=== PATIENT | female | born 1965 | race Caucasian/White ===

== ENCOUNTER 2016-11-12 15:57 | Emergency (ER) | payer OTHER ==
[~2016-11-12] VITALS: Ht 160 cm; Wt 84.0 kg
[~2016-11-12 15:57] MED LIST: ALPR0.254 PO; AMLO5TAB4 PO; ASPI-664 PO; CLOP75TA27 PO; EMPA10TA PO; METO50TA16 PO; SERT50TA6 PO; SITA1TAB5 PO; TOPI-25 PO
[2016-11-12 16:01] VITALS: Ht 160 cm; Wt 84.0 kg
[2016-11-12] MEDS ORDERED: KETOROLAC 15 MG INJ IV STA (16:24)
[2016-11-12] MEDS ORDERED: SOD CHLORIDE 0.9% 1,000 ML IV STA (16:24)
[2016-11-12] MEDS ORDERED: ONDANSETRON 4 MG INJ IV STA (16:24)
[2016-11-12] MEDS ORDERED: DICYCLOMINE 20 MG INJ IM ONE (16:30)
--- NOTE | 2016-11-12 16:51 | ERA ---
ER Documentation Chief Complaint Date/Time DATE: 11/12/16 TIME: 16:49 Chief Complaint epigastric/ap with diarrhea x 3 days; HPI 51-year-old female history of prior stroke with occasional residual dysarthria who presents emergency room with abdominal pain. History provided by daughter. The patient describes approximately 3 days of symptoms that include nausea, nonbloody nonbilious emesis, loose watery stools and epigastric abdominal discomfort that is cramping and moderate. No fevers or chills, the patient generally has some slurred speech when in stressful situations secondary to baseline stroke which is occurring again. No facial droop, no motor weakness, no ataxia. ROS All systems reviewed and are negative except as per history of present illness. Medications Home Meds Active Scripts Ondansetron (Ondansetron Odt) 4 Mg Tab.rapdis, 4 MG PO Q6H Y for NAUSEA AND/OR VOMITING, #30 TAB Prov:DEEPAK JACOME MD 11/12/16 Ibuprofen* (Motrin*) 800 Mg Tab, 800 MG PO Q6H Y for PAIN AND OR ELEVATED TEMP, #30 TAB Prov:DEEPAK JACOME MD 11/12/16 Dicyclomine Hcl* (Bentyl*) 10 Mg Capsule, 10 MG PO QID Y for abdominal cramping , #30 CAP Prov:DEEPAK JACOME MD 11/12/16 Reported Medications Sertraline Hcl* (Sertraline Hcl*) 50 Mg Tablet, 50 MG PO DAILY, #30 TAB 06/06/16 Sitagliptin Phos/Metformin HCl (Janumet 50-1,000 mg Tablet) 1 Each Tablet, 1 EACH PO BID, TAB 06/06/16 Aspirin* (Aspirin* EC) 81 Mg Tablet.dr, 81 MG PO DAILY, TAB 06/06/16 Clopidogrel Bisulfate (Clopidogrel) 75 Mg Tablet, 75 MG PO DAILY, #30 TAB 06/06/16 Alprazolam* (Alprazolam*) 0.25 Mg Tablet, 0.25 MG PO BID Y for ANXIETY, TAB 06/06/16 Metoprolol Succinate* (Toprol XL*) 50 Mg Tab.er.24h, 50 MG PO DAILY, #30 TAB 06/06/16 Amlodipine Besylate* (Norvasc*) 5 Mg Tablet, 5 MG PO DAILY, TAB 12/10/16 Empagliflozin (Jardiance) 10 Mg Tablet, 10 MG PO DAILY, TAB 06/06/16 Topiramate* (Topiramate*) 100 Mg Tablet, 100 MG PO BID, TAB 06/06/16 Allergies Allergies: Coded Allergies: No Known Allergy (Unverified , 06/06/16) PMhx/Soc History of Surgery: No Anesthesia Reaction: No Hx Neurological Disorder: Yes Hx Respiratory Disorders: No Hx Cardiac Disorders: No Hx Psychiatric Problems: No Hx Miscellaneous Medical Probl: Yes (HTN) Hx Alcohol Use: No Hx Substance Use: No Hx Tobacco Use: No Physical Exam Vitals Vital Signs Date Time Temp Pulse Resp B/P Pulse Ox O2 Delivery O2 Flow Rate FiO2 11/12/16 16:15 96 16 147/94 98 Room Air 11/12/16 16:01 99.6 104 20 154/85 99 Physical Exam General: Well developed, well nourished, no acute distress, slightly slurred speech that is intermediate and inconsistent though consistent with her baseline Head: Normocephalic, atraumatic. Eyes: Pupils equally reactive, EOM intact ENT: Dry mucous membranes Neck: Supple, no lymphadenopathy Respiratory: Lungs clear bilaterally, no distress Cardiovascular: RRR, no murmurs, rubs, or gallops Abdominal: Soft, non-tender, non-distended, no peritoneal signs, negative James sign, no tenderness to McBurney's point : Deferred MSK: No edema, no unilateral swelling, 5/5 strength Neurologic: Alert and oriented, moving all extremities, occasional slurred speech, no focal weakness, no cerebellar signs Skin: No rash Psych: Normal mood Result Diagram: 11/12/16 1640 11/12/16 1640 Results 24 hrs Laboratory Tests Test 11/12/16 16:40 11/12/16 16:45 White Blood Count 11.010^3/ul Red Blood Count 4.3110^6/ul Hemoglobin 11.0g/dl Hematocrit 35.1% Mean Corpuscular Volume 81.4fl Mean Corpuscular Hemoglobin 25.5pg Mean Corpuscular Hemoglobin Concent 31.3g/dl Red Cell Distribution Width 14.6% Platelet Count 31877^3/UL Mean Platelet Volume 9.7fl Neutrophils % 83.7% Lymphocytes % 10.2% Monocytes % 4.9% Eosinophils % 0.8% Basophils % 0.1% Nucleated Red Blood Cells % 0.0/100WBC Neutrophils # 9.210^3/ul Lymphocytes # 1.110^3/ul Monocytes # 0.510^3/ul Eosinophils # 0.110^3/ul Basophils # 0.010^3/ul Nucleated Red Blood Cells # 0.010^3/ul Sodium Level 136mmol/L Potassium Level 4.0mmol/L Chloride Level 106mmol/L Carbon Dioxide Level 22mmol/L Anion Gap 12 Blood Urea Nitrogen 11mg/dl Creatinine 0.54mg/dl Glucose Level 155mg/dl Calcium Level 8.5mg/dl Total Bilirubin 0.1mg/dl Direct Bilirubin 0.00mg/dl Indirect Bilirubin 0.1mg/dl Aspartate Amino Transf (AST/SGOT) 22IU/L Alanine Aminotransferase (ALT/SGPT) 33IU/L Alkaline Phosphatase 68IU/L Total Protein 7.2g/dl Albumin 3.9g/dl Globulin 3.30g/dl Albumin/Globulin Ratio 1.18 Lipase 42U/L Urine Color LT. YELLOW Urine Clarity SLIGHTLY CLOUDY Urine pH 6.0 Urine Specific [place] <=1.005 Urine Ketones NEGATIVE Urine Nitrite NEGATIVE Urine Bilirubin NEGATIVE Urine Urobilinogen 0.2 E.U./dL Urine Leukocyte Esterase NEGATIVE Urine Microscopic RBC 0-2/HPF Urine Microscopic WBC 0-2/HPF Urine Squamous Epithelial Cells RARE Urine Hemoglobin TRACE Urine Glucose NEGATIVE% Urine Total Protein NEGATIVE Current Medications Medications (Trade) Dose Ordered Sig/Kristan Route PRN Reason Start Time Stop Time Status Last Admin Dose Admin Sodium Chloride (NS) 1,000 ml @ 1,000 mls/hr Q1H STAT IV 11/12/16 16:24 11/12/16 17:23 DC 11/12/16 17:04 Ondansetron HCl (Zofran Inj) 4 mg ONCE STAT IV 11/12/16 16:24 11/12/16 16:26 DC 11/12/16 17:02 Ketorolac Tromethamine (Toradol) 15 mg ONCE STAT IV 11/12/16 16:24 11/12/16 16:26 DC 11/12/16 17:02 Dicyclomine HCl (Bentyl) 10 mg ONCE ONCE IM 11/12/16 16:30 11/12/16 16:31 DC 11/12/16 17:24 Procedures/MDM LAB INTERPRETATION: White blood cell count of 11 with slight shift but normal electrolytes, normal urinalysis MEDICAL DECISION MAKING: The patient presents with 3 days of symptoms that include nausea vomiting diarrhea and epigastric abdominal discomfort. She has a benign abdominal examination. I believe her symptoms are likely secondary to viral process. The patient has a benign abdominal exam without signs of acute intra-abdominal process. The patient does have slurred speech secondary to stress response this is consistent with her baseline and not consistent with a new or acute stroke. The daughter and patient reiterated that this is a normal process for her. I would like to avoid unnecessary CT imaging therefore laboratory testing and fluid resuscitation with serial abdominal exams will be initiated. ER COURSE: On reevaluation the patient still has mild epigastric abdominal pain but states that she subjectively feels better. I believe this is most consistent with viral process. I discussed outpatient symptom control, probiotics. I discussed return precautions for any worsening abdominal pain or worsening symptoms and the patient verbalizes understanding. Her slurred speech issues are improving as the patient has subjective improvement. I kept the patient and/or family informed of laboratory and diagnostic imaging results throughout the emergency room course. DISPOSITION PLAN: We discussed follow up with the patient's primary care doctor within 24 to 48 hours as needed. We also discussed return to the emergency room for worsening symptoms or worsening condition. Outpatient referral: [None required] Discharge Medications: Zofran, Bentyl, Motrin Departure Diagnosis: Primary Impression: Nausea vomiting and diarrhea Condition: Stable DEEPAK JACOME MD November 12, 2016 16:51
[2016-11-12 17:00] LABS: ADD SCAN DIFF NO
[2016-11-12 17:01] LABS: BASOPHILS % 0.1 % (0.0-2.0); EOSINOPHILS # 0.1 10^3/ul (0.0-0.5); EOSINOPHILS % 0.8 % (0.0-7.0); HEMATOCRIT 35.1 % (37.0-47.0); LYMPHOCYTES # 1.1 10^3/ul (0.8-2.9); LYMPHOCYTES % 10.2 % (15.0-51.0); MEAN CORPUSCULAR HEMOGLOBIN 25.5 pg (29.0-33.0); MEAN CORPUSCULAR HGB CONC 31.3 g/dl (32.0-37.0); MEAN CORPUSCULAR VOLUME 81.4 fl (82.0-101.0); MEAN PLATELET VOLUME 9.7 fl (7.4-10.4); MONOCYTE # 0.5 10^3/ul (0.3-0.9); MONOCYTES % 4.9 % (0.0-11.0); NEUTROPHIL # 9.2 10^3/ul (1.6-7.5); NEUTROPHILS % 83.7 % (39.0-77.0); PLATELET COUNT 377 10^3/UL (140-415); RED BLOOD COUNT 4.31 10^6/ul (4.20-5.40); RED CELL DISTRIBUTION WIDTH 14.6 % (11.5-14.5)
[2016-11-12 17:21] LABS: ALBUMIN 3.9 g/dl (3.3-4.9); ALBUMIN/GLOBULIN RATIO 1.18; BILIRUBIN,INDIRECT 0.1 mg/dl (0-1.1); BILIRUBIN,TOTAL 0.1 mg/dl (0.2-1.3); CALCIUM 8.5 mg/dl (8.4-10.2); CREATININE 0.54 mg/dl (0.44-1.00); TOTAL PROTEIN 7.2 g/dl (6.1-8.1)
[2016-11-12 17:29] LABS: ADD UMIC YES; URINE BILIRUBIN (Dip) NEGATIVE (NEGATIVE); URINE BLOOD (Dip) TRACE (NEGATIVE); URINE COLOR LT. YELLOW (YELLOW); URINE GLUCOSE (Dip) NEGATIVE (NEGATIVE); URINE KETONES (Dip) NEGATIVE (NEGATIVE); URINE LEUKOCYTE ESTERASE (Dip) NEGATIVE (NEGATIVE); URINE NITRITE (Dip) NEGATIVE (NEGATIVE); URINE TOTAL PROTEIN (Dip) NEGATIVE (NEGATIVE); URINE UROBILINOGEN (Dip) 0.2 E.U./dL (0.1-1.0)
[2016-11-12 17:37] LABS: SQUAMOUS EPITHELIAL CELL,UR RARE; URINE RBCS 0-2 /HPF (0)
[2016-11-12] MEDS ORDERED: ONDA4TAB14 PO (17:45)
[2016-11-12] MEDS ORDERED: DICY10CA60 PO (17:45)
[2016-11-12] MEDS ORDERED: IBUP800T25 PO (17:45)
[2016-11-12 18:11] VITALS: BP 142/88; PULSE 90; RESP 16
== END 2016-11-12 18:29 | disposition home or self-care (01) ==
LOC: E/R 15:57
DX: R11.2 Nausea with vomiting, unspecified (principal); R40.2252 Coma scale, best verbal response, oriented, at arrival to emergency department; R19.7 Diarrhea, unspecified; I10 Essential (primary) hypertension; R40.2142 Coma scale, eyes open, spontaneous, at arrival to emergency department; R40.2362 Coma scale, best motor response, obeys commands, at arrival to emergency department; Z79.82 Long term (current) use of aspirin
CPT/HCPCS: 80053; 81001; 83690; 85025; 96372; 96374; 96375; J0500; J1885; J2405; J7030; Z7502; Z7610; 81003

== ENCOUNTER 2017-04-08 14:14 | Inpatient (IN) | payer OTHER ==
[~2017-04-08] VITALS: Ht 160 cm; Wt 85.0 kg
[~2017-04-08 14:14] MED LIST changes: +DICY10CA60 PO; +IBUP800T25 PO; +METO-319 PO; -METO50TA16 PO; +ONDA4TAB14 PO
[2017-04-08] MEDS ORDERED: SOD CHLORIDE 0.9% 500 ML IV STA (14:33)
--- NOTE | 2017-04-08 14:50 | RADRPT ---
PROCEDURE: XR Chest. CLINICAL INDICATION: Possible stroke TECHNIQUE: Single frontal view of the chest was obtained COMPARISON: 06/08/2016 FINDINGS: No pleural effusion or pneumothorax. No consolidation. Stable cardiomediastinal silhouette. No acute osseous abnormality. IMPRESSION: No acute cardiopulmonary disease. RPTAT: EE Newton Barahona Physician Date Time Electronically viewed and signed by Newton Barahona Physician on 04/08/2017 14:50 GC/
[2017-04-08 15:24] LABS: BASOPHILS % 0.4 % (0.0-2.0); EOSINOPHILS # 0.1 10^3/ul (0.0-0.5); HEMATOCRIT 36.5 % (37.0-47.0); HEMOGLOBIN 11.1 g/dl (12.0-16.0); LYMPHOCYTES # 2.4 10^3/ul (0.8-2.9); LYMPHOCYTES % 28.5 % (15.0-51.0); MEAN CORPUSCULAR HEMOGLOBIN 23.9 pg (29.0-33.0); MEAN CORPUSCULAR HGB CONC 30.4 g/dl (32.0-37.0); MEAN CORPUSCULAR VOLUME 78.7 fl (82.0-101.0); MEAN PLATELET VOLUME 10.2 fl (7.4-10.4); MONOCYTE # 0.6 10^3/ul (0.3-0.9); MONOCYTES % 6.8 % (0.0-11.0); NEUTROPHIL # 5.2 10^3/ul (1.6-7.5); NEUTROPHILS % 62.9 % (39.0-77.0); PLATELET COUNT 400 10^3/UL (140-415); RED BLOOD COUNT 4.64 10^6/ul (4.20-5.40); RED CELL DISTRIBUTION WIDTH 15.5 % (11.5-14.5); WHITE BLOOD COUNT 8.3 10^3/ul (4.8-10.8)
[2017-04-08 15:36] LABS: ADD UMIC YES; UR ASCORBIC ACID NEGATIVE (NEGATIVE); UR BILIRUBIN (Dip) NEGATIVE (NEGATIVE); UR BLOOD (Dip) 2+ mg/dL (NEGATIVE); UR CLARITY SLIGHTLY CLOUDY (CLEAR); UR COLOR YELLOW (YELLOW); UR GLUCOSE (Dip) 3+ mg/dL (NEGATIVE); UR KETONES (Dip) NEGATIVE (NEGATIVE); UR LEUKOCYTE ESTERASE (Dip) 1+ Leu/ul (NEGATIVE); UR NITRITE (Dip) NEGATIVE (NEGATIVE); UR RBC 4 /HPF (0-5); UR SPECIFIC GRAVITY (Dip) 1.031 (1.003-1.030); UR SQUAMOUS EPITHELIAL CELL FEW /HPF (FEW); UR TOTAL PROTEIN (Dip) NEGATIVE (NEGATIVE); UR UROBILINOGEN (Dip) NEGATIVE (NEGATIVE)
--- NOTE | 2017-04-08 15:37 | RADRPT ---
PROCEDURE: Noncontrast CT Head. CLINICAL INDICATION: Stroke. TECHNIQUE: Noncontrast CT of the head was obtained. The administered radiation dose was CTDI vol = 43.27 mGy, DLP = 720.23 the mGy-cm. One or more of the following dose reduction techniques were used : Automated exposure control, Adjustment of the mA and/or kV according to patient size, or Use of it erative reconstruction technique. COMPARISON: Noncontrast CT of the head from June 06, 2016. FINDINGS: The ventricles and sulci are within normal limits. There is stable small left frontal opercular small chronic infarction. There is stable adjacent osse ous scalloping. There is a partially empty sella turcica. There is subtle loss of velasquez-white differentiation within the left lateral temporal lobe (image [id number] s eries [phone]) suspicious for acute / recent infarction. There is no acute intracranial hemorrhage. There is no mass effect. No midline shift is identified. The orbits are within normal limits. The paranasal sinuses are well aerated. No destructive osseous lesion is identified. IMPRESSION: No significant change. 1. Subtle loss of velasquez-white differentiation within the left lateral temporal lobe suspicious for ac rafael / recent infarction. Noncontrast MRI of the brain may be performed as clinically warranted. 2. No acute intracranial hemorrhage. 3. Stable small chronic left frontal opercular infarction. 4. Partially empty sella turcica. Further findings as detailed above. These findings were discussed with Berlin Littlejohn on 04/08/2017 at 3:35 PM. RPTAT: PP .Manoj Moreira MD, MD Date Time Electronically viewed and signed by .Manoj Moreira MD, MD on 04/08/2017 15:37 .F/
[2017-04-08 15:39] LABS: INR 1.02; PROTIME 13.4 Sec (12.2-14.2)
[2017-04-08 15:40] LABS: PARTIAL THROMBOPLASTIN TIME 33.5 Sec (25.0-35.0)
[2017-04-08 15:42] LABS: ANION GAP 13 (8-16); BLOOD UREA NITROGEN 17 mg/dl (7-20); CARBON DIOXIDE 21 mmol/L (21-31); CHLORIDE 111 mmol/L (97-110); CREATININE 0.83 mg/dl (0.44-1.00); GLUCOSE 143 mg/dl (70-220); POTASSIUM 3.9 mmol/L (3.5-5.1); SODIUM 141 mmol/L (135-144)
[2017-04-08 15:59] LABS: TROPONIN-I < 0.012 ng/ml (0.00-0.12)
[2017-04-08] MEDS ORDERED: ASPIRIN 81 MG TAB PO ONE (16:00)
[2017-04-08 16:10] LABS: BARBITURATES Negative (NEGATIVE); BENZODIAZEPINES Negative (NEGATIVE); CANNABINOIDS Negative (NEGATIVE); COCAINE Negative (NEGATIVE); OPIATES Negative (NEGATIVE)
[2017-04-08] MEDS ORDERED: ONDANSETRON 4 MG INJ IV PRN (16:30)
[2017-04-08] MEDS ORDERED: ACETAMINOPHEN 325 MG TAB PO PRN (16:30)
--- NOTE | 2017-04-08 18:27 | ERA ---
ER Documentation Chief Complaint Date/Time DATE: 04/08/17 TIME: 18:18 Chief Complaint dizziness , slurring of speech, headache - hx of stroke HPI This 51-year-old female presents for approximately 16 hours of slurred speech, generalized weakness, headache and confusion. She has a history of 2 previous strokes. She has residual weakness on her left side but states that her left arm and leg have also been weaker than usual since last night. Denies any nausea or vomiting. Denies head injury. ROS All systems reviewed and are negative except as per history of present illness. Medications Home Meds Active Scripts Ondansetron (Ondansetron Odt) 4 Mg Tab.rapdis, 4 MG PO Q6H Y for NAUSEA AND/OR VOMITING, #30 TAB Prov:DEEPAK JACOME MD 11/12/16 Ibuprofen* (Motrin*) 800 Mg Tab, 800 MG PO Q6H Y for PAIN AND OR ELEVATED TEMP, #30 TAB Prov:DEEPAK JACOME MD 11/12/16 Dicyclomine Hcl* (Bentyl*) 10 Mg Capsule, 10 MG PO QID Y for abdominal cramping , #30 CAP Prov:DEEPAK JACOME MD 11/12/16 Reported Medications Sertraline Hcl* (Sertraline Hcl*) 50 Mg Tablet, 50 MG PO DAILY, #30 TAB 06/06/16 Sitagliptin Phos/Metformin HCl (Janumet 50-1,000 mg Tablet) 1 Each Tablet, 1 EACH PO BID, TAB 06/06/16 Aspirin* (Aspirin* EC) 81 Mg Tablet.dr, 81 MG PO DAILY, TAB 06/06/16 Clopidogrel Bisulfate (Clopidogrel) 75 Mg Tablet, 75 MG PO DAILY, #30 TAB 06/06/16 Alprazolam* (Alprazolam*) 0.25 Mg Tablet, 0.25 MG PO BID Y for ANXIETY, TAB 06/06/16 Metoprolol Succinate* (Toprol XL*) 50 Mg Tab.er.24h, 50 MG PO DAILY, #30 TAB 06/06/16 Amlodipine Besylate* (Norvasc*) 5 Mg Tablet, 5 MG PO DAILY, TAB 06/06/16 Empagliflozin (Jardiance) 10 Mg Tablet, 10 MG PO DAILY, TAB 06/06/16 Topiramate* (Topiramate*) 100 Mg Tablet, 100 MG PO BID, TAB 06/06/16 Allergies Allergies: Coded Allergies: No Known Allergy (Unverified , 04/08/17) PMhx/Soc History of Surgery: No Anesthesia Reaction: No Hx Neurological Disorder: Yes (stroke) Hx Respiratory Disorders: No Hx Cardiac Disorders: Yes (HTN, high cholesterol. ) Hx Psychiatric Problems: No Hx Miscellaneous Medical Probl: Yes (dm2, anemia) Hx Alcohol Use: No Hx Substance Use: No Hx Tobacco Use: No Smoking Status: Never smoker Physical Exam Vitals Vital Signs Date Time Temp Pulse Resp B/P Pulse Ox O2 Delivery O2 Flow Rate FiO2 04/08/17 15:51 84 18 153/82 99 Room Air 04/08/17 14:16 98.5 90 18 151/84 99 Physical Exam Const: [] Mild distress Head: Atraumatic Eyes: Normal Conjunctiva, EOMI, PERRL ENT: Normal External Ears, Nose and Mouth. Neck: Full range of motion..~ No meningismus. Resp: Clear to auscultation bilaterally Cardio: Regular rate and rhythm, no murmurs Abd: Soft, non tender, non distended. Normal bowel sounds Skin: No petechiae or rashes Back: No midline or flank tenderness Ext: No cyanosis, or edema Neur: Awake and alert and oriented 3, slurred speech and slow to form sentences, patient does have 4 out of 5 strength in left battery charger conveyor line and left leg, however since she stated that she had weakness in his leg discounting them from the NIH stroke scale she has an AHI of 3 for the slurred speech and confusion. She is able to remember 3 objects Psych: Normal Mood and Affect Result Diagram: 04/08/17 1505 04/08/17 1505 Results 24 hrs Laboratory Tests Test 04/08/17 14:28 04/08/17 15:05 04/08/17 15:15 Bedside Glucose 135mg/dL White Blood Count 8.310^3/ul Red Blood Count 4.6410^6/ul Hemoglobin 11.1g/dl Hematocrit 36.5% Mean Corpuscular Volume 78.7fl Mean Corpuscular Hemoglobin 23.9pg Mean Corpuscular Hemoglobin Concent 30.4g/dl Red Cell Distribution Width 15.5% Platelet Count 76952^3/UL Mean Platelet Volume 10.2fl Neutrophils % 62.9% Lymphocytes % 28.5% Monocytes % 6.8% Eosinophils % 1.0% Basophils % 0.4% Nucleated Red Blood Cells % 0.0/100WBC Neutrophils # 5.210^3/ul Lymphocytes # 2.410^3/ul Monocytes # 0.610^3/ul Eosinophils # 0.110^3/ul Basophils # 0.010^3/ul Nucleated Red Blood Cells # 0.010^3/ul Prothrombin Time 13.4Sec Prothrombin Time Ratio 1.0 INR International Normalized Ratio 1.02 Activated Partial Thromboplast Time 33.5Sec Sodium Level 141mmol/L Potassium Level 3.9mmol/L Chloride Level 111mmol/L Carbon Dioxide Level 21mmol/L Anion Gap 13 Blood Urea Nitrogen 17mg/dl Creatinine 0.83mg/dl Glucose Level 143mg/dl Hemoglobin A1c 7.0% Calcium Level 9.0mg/dl Troponin I < 0.012ng/ml Urine Color YELLOW Urine Clarity SLIGHTLY CLOUDY Urine pH 5.0 Urine Specific [place] 1.031 Urine Ketones NEGATIVEmg/dL Urine Nitrite NEGATIVEmg/dL Urine Bilirubin NEGATIVEmg/dL Urine Urobilinogen NEGATIVEmg/dL Urine Leukocyte Esterase 1+Mani/ul Urine Microscopic RBC 4/HPF Urine Microscopic WBC 18/HPF Urine Squamous Epithelial Cells FEW/HPF Urine Hemoglobin 2+mg/dL Urine Glucose 3+mg/dL Urine Total Protein NEGATIVEmg/dl Urine Opiates Screen Negative Urine Barbiturates Negative Urine Amphetamines Screen Negative Urine Benzodiazepines Screen Negative Urine Cocaine Screen Negative Urine Cannabinoids Negative Current Medications Medications (Trade) Dose Ordered Sig/Kristan Route PRN Reason Start Time Stop Time Status Last Admin Dose Admin Sodium Chloride (NS) 500 ml @ 500 mls/hr Q1H STAT IV 04/08/17 14:33 04/08/17 15:32 DC 04/08/17 14:54 Aspirin (Aspirin) 324 mg ONCE ONCE PO 04/08/17 16:00 04/08/17 16:01 DC 04/08/17 15:46 Ondansetron HCl (Zofran Inj) 4 mg ER BRIDGE PRN IV NAUSEA AND/OR VOMITING 04/08/17 16:30 04/09/17 16:29 Acetaminophen (Tylenol Tab) 650 mg ER BRIDGE PRN PO MILD PAIN/FEVER 04/08/17 16:30 04/09/17 16:29 Procedures/MDM Acute CVA and urinary tract infection. She was placed on a monitor and CT revealed possible temporal lobe stroke. MRI was ordered. Patient states that she will need anxiety medication prior to MRI as she is claustrophobic. Also has urinary tract infection without signs of sepsis. She was given aspirin is immediately after CAT scan did not reveal any ischemia. She is not a TPA candidate because symptoms were not present for almost a full day now. She currently admitted to telemetry for monitoring of her serious condition. Spoke with Dr. Smith will be admitting. EKG interpretation: Normal sinus rhythm rate of 80, normal axis, no ST or T- wave changes concerning for acute ischemia, normal intervals. Normal EKG Departure Diagnosis: Primary Impression: Acute CVA (cerebrovascular accident) Additional Impression: UTI (urinary tract infection) Condition: Serious FABIANCHELAMBER DO Apr 08, 2017 18:26
[2017-04-08] MEDS ORDERED: CEFTRIAXONE 1 GM/50 ML (PMX) 50 ML IVPB ONE (18:30)
[2017-04-08 20:00] VITALS: Ht 160 cm; Wt 85.0 kg
[2017-04-08 20:34] VITALS: PULSE 73
[2017-04-08 20:56] VITALS: BP 135/73; RESP 20
[2017-04-08] MEDS ORDERED: hydrALAzine 20 MG INJ IV PRN (21:30)
--- NOTE | 2017-04-08 22:13 | RADRPT ---
PROCEDURE: MRI Brain without contrast. CLINICAL INDICATION: Dizziness, altered mental status. TECHNIQUE: An MRI of the brain was performed utilizing the following sequences: Sagittal and axial T1 weighted, axial T2 weighted, axial diffusion weighted with ADC mapping, coronal GRE, and axial F LAIR. COMPARISON: Brain CT 04/08/2017. Brain MRI 06/07/2016. FINDINGS: No diffusion weighted abnormalities are seen to suggest the presence of acute ischemia or recent inf arct. No hypointense signal abnormalities are seen on the GRE images to suggest the presence of blo od degradation products. There is no evidence of intracranial hemorrhage, mass effect, or midline s hift. No extra-axial fluid collections are seen. The ventricles and sulci are minimally enlarged ind icative of volume loss. Partially empty and expanded sella is noted. There are mild to scattered foci of T2 FLAIR hyperintensity in the periventricular, deep, and subcor tical white matter, which are nonspecific in etiology but likely reflect chronic small vessel ischem ic changes. Focal old left parietal cortical infarct is noted. No abnormal intracranial vascular flow void is noted. The visualized paranasal sinuses demonstrate s mall probable mucous retention cysts in maxillary sinuses. IMPRESSION: 1. No acute intracranial hemorrhage, infarction or mass. 2. Mild chronic small vessel ischemic changes. 3. Focal old left parietal cortical infarct. 4. Partially empty and expanded sella. 5. Minimal generalized cerebral volume loss. RPTAT: HFN .Breezy Culver MD, MD Date Time Electronically viewed and signed by .Breezy Culver MD, MD on 04/08/2017 22:12 .N/
[2017-04-08] MEDS: ALPRAZOLAM 0.25 MG TAB PO PRN (22:36)
[2017-04-08] MEDS: ATORVASTATIN 40 MG TAB PO SCH (22:46)
[2017-04-08] MEDS ORDERED: GLUCOSE GEL 15 GRAM TUBE PO PRN ×2 (23:00)
[2017-04-08] MEDS ORDERED: GLUCAGON 1 MG INJ IM PRN (23:00)
[2017-04-08] MEDS ORDERED: GLUCOSE GEL 15 GRAM TUBE BUCCAL PRN (23:00)
[2017-04-08] MEDS ORDERED: DEXTROSE 50% 50 ML SYRINGE IV PRN ×2 (23:00)
[2017-04-08] MEDS ORDERED: ZOLPIDEM 5 MG TAB ONE (23:44)
[2017-04-09] VITALS (11 sets, daily range): BP systolic 122–137; BP diastolic 73–88; PULSE 68–77; RESP 17–19
[2017-04-09] MEDS: ZOLPIDEM 5 MG TAB PO PRN ×2 (00:03→21:29)
[2017-04-09] MEDS: ACCU-CHEK XX SCH (03:00)
--- NOTE | 2017-04-09 03:44 | HP ---
DATE OF ADMISSION: 04/08/2017 CHIEF COMPLAINT: Slurred speech and right-sided weakness. HISTORY OF PRESENT ILLNESS: The patient is an 51-year-old female well known to me from previous adm ission. The patient has a history of hypertension and CVA, which was diagnosed back in May. The patient had residual right-sided weakness and uses a cane for ambulation. The patient, yest erday, noted dizziness and slurred speech and also noted increasing weakness in the right side. The patient reported the symptoms started last night; however, they did not seek medical advice and, th erefore, came to the ER today. The patient did not have any headache or seizure. The patient did n ot have any chest congestion and was able to manage her oral secretions. The patient underwent CT o f the head, which revealed sudden loss of velasquez-white differentiation within the left parietotemporal lobe, suspicious for acute/recent infarction. MRI will be ordered for further evaluation. The pat ient denies any chest pain, abdominal pain. No reported leg edema. No reported resting leg pain. REVIEW OF SYSTEMS: Was rather limited because of slurred speech. The patient did not have any blee ding from any site. No recent fever or chills. As per the patient's daughter, no reported vomiting . The patient does have a history of diabetes for which she was on oral agents. The patient also h as a history of anxiety for which she takes Xanax on a p.r.n. basis. The patient was already on asp irin due to her previous stroke. PAST MEDICAL HISTORY: As stated above. In addition, the patient has a history of a suction dilatio n endometrial ablation for intractable menometrorrhagia by Dr. Virk. ALLERGIES: NONE. SOCIAL HISTORY: No smoking, no alcohol. FAMILY HISTORY: Positive for diabetes and hypertension. PHYSICAL EXAMINATION: GENERAL: The patient noted to be conscious, awake, alert, follows simple commands, does have slurre d speech. VITAL SIGNS: Temperature 98.1, pulse 74, respiratory rate 20, blood pressure 137/72, O2 saturation 98% on room air. HEENT: Conjunctivae and lids normal. Oropharynx clear. NECK: Supple. No carotid bruits. No JVD. CHEST: Fairly clear. CARDIOVASCULAR: S1, S2 normal. No murmur. Oropharynx grossly negative. ABDOMEN: Soft, nondistended, nontender. No palpable mass. EXTREMITIES: No leg edema. Pedal pulses palpable. SKIN: Without acute rash. NEUROLOGIC: The patient is awake, alert, follows simple commands, has slurred speech, as well as ri ght-sided weakness. LABS: WBC 8.3, hemoglobin 11.1, platelets 400. Sodium 141, potassium 3.9, BUN 17, creatinine 0.8, glucose 7. The patient's lipid panel back in 2016 revealed LDL of 32 and her hemoglobin A1c was 7 a s compared to 7.2 back in 2016. IMPRESSION: 1. Recurrent cerebrovascular accident. 2. Hypertension. 3. Diabetes mellitus. 4. Anxiety and possible depression. PLAN: The patient admitted on telemetry floor. Patient will be started on mechanical soft diet, wi ll be continued on Norvasc as at home. We will also add Plavix. Will hold off on aspirin. Will pu t her on sliding scale insulin and will use SCD for DVT prophylaxis. Will also add statins. Will o btain ST, PT, and OT as well, and also will obtain carotid Doppler and 2D echocardiogram and MRI of the brain. Further recommendation depends on hospital course. A neuro consult will also be obtaine d. The plan of care discussed with the patient's daughter. Dictated By: CHERRY CONLEY/VANDANA Conf#: [id number] DID#: [id number]
[2017-04-09] MEDS: INSULIN ASPART [NOVOLOG] 3 ML PEN SC SCH ×4 (08:00→21:00)
[2017-04-09] MEDS: CLOPIDOGREL 75 MG TAB PO SCH (08:19)
[2017-04-09] MEDS: AMLODIPINE 5 MG TAB PO SCH (08:19)
[2017-04-09 08:21] LABS: CHOL/HDL RATIO 2.7 RATIO
[2017-04-09] MEDS: ACETAMINOPHEN 325 MG TAB PO PRN ×2 (10:23→17:22)
--- NOTE | 2017-04-09 19:29 | PN ---
Date/Time of Note Date/Time of Note DATE: 04/09/17 TIME: 19:24 Assessment/Plan VTE Prophylaxis VTE Prophylaxis Intervention: SCD's Lines/Catheters IV [facility]ter Type [facility]from [facility] Saline Lock Assessment/Plan Chief Complaint/Hosp Course Patient is sitting in bed eating dinner, and denies any chest pain denies shortness of breath, patient has right upper and lower extremities weakness, continue physical Occupational Therapy. Problems: Assessment/Plan - Recurrent cerebrovascular accident. Continue Plavix. Dr. Enriquez is asked to see patient in neurology consultation. - Hypertension. - Diabetes mellitus. HglA1c 7.0 continue Lantus and NovoLog - Hyperlipidemia, continue Lipitor - Anxiety and possible depression. Further recommendations based on clinical course. Plan of care discussed with Dr. Smith Exam/Review of Systems Vital Signs Vitals Vital Signs Date Time Temp Pulse Resp B/P Pulse Ox O2 Delivery O2 Flow Rate FiO2 04/09/17 16:15 76 04/09/17 15:40 98.4 18 124/88 96 04/08/17 18:30 Room Air Intake and Output 04/08/17 04/08/17 04/09/17 15:00 23:00 07:00 Intake Total 200 ml Balance 200 ml Exam Constitutional: alert, oriented Head: normocephalic Neck: supple Respiratory: normal air movement Cardiovascular: nl pulses Gastrointestinal: non-tender, soft Musculoskeletal: nl extremities to inspection Neurological: nl mental status Skin: other (Right-sided weakness) Results Result Diagram: 04/08/17 1505 04/08/17 1505 Results 24 hrs Laboratory Tests Test 04/09/17 03:01 04/09/17 07:12 04/09/17 08:17 04/09/17 12:02 Bedside Glucose 188 128 154 Triglycerides Level 129 Cholesterol Level 122 LDL Cholesterol, Calculated 51 HDL Cholesterol 45 Cholesterol/HDL Ratio 2.7 Test 04/09/17 17:15 Bedside Glucose 203 Medications Medications Current Medications Alprazolam (Xanax) 0.25 mg BID PRN PO ANXIETY Last administered on 04/08/17 22:36; Admin Dose 0.25 MG; Start 04/08/17 at 21:00 Amlodipine Besylate (Norvasc) 5 mg DAILY PO Last administered on 04/09/17 08: 19; Admin Dose 5 MG; Start 04/09/17 at 09:00 Atorvastatin Calcium (Lipitor) 40 mg HS PO Last administered on 04/08/17 22: 46; Admin Dose 40 MG; Start 04/08/17 at 21:00 Clopidogrel Bisulfate (plaVIX) 75 mg DAILY PO Last administered on 04/09/17 08:19; Admin Dose 75 MG; Start 04/09/17 at 09:00 Acetaminophen (Tylenol Tab) 650 mg Q4H PRN PO PAIN AND OR ELEVATED TEMP Last administered on 04/09/17 17:22; Admin Dose 650 MG; Start 04/08/17 at 21:30 Hydralazine HCl (Apresoline) 10 mg Q4H PRN IV ELEVATED BLOOD PRESSURE; Start 04/08/17 at 21:30 Insulin Glargine (Lantus) 10 unit DAILY@20 SC ; Start 04/09/17 at 20:00 Diagnostic Test (Pha) (Accu-Chek) 1 ea 02 XX Last administered on 04/09/17 03 :00; Admin Dose 1 EA; Start 04/09/17 at 02:00 Miscellaneous Information 1 ea NOTE XX ; Start 04/08/17 at 23:00 Glucose (Glutose) 15 gm Q15M PRN PO DECREASED GLUCOSE; Start 04/08/17 at 23:00 Glucose (Glutose) 22.5 gm Q15M PRN PO DECREASED GLUCOSE; Start 04/08/17 at 23: 00 Dextrose (D50w Syringe) 25 ml Q15M PRN IV DECREASED GLUCOSE; Start 04/08/17 at 23:00 Dextrose (D50w Syringe) 50 ml Q15M PRN IV DECREASED GLUCOSE; Start 04/08/17 at 23:00 Glucagon (Glucagen) 1 mg Q15M PRN IM DECREASED GLUCOSE; Start 04/08/17 at 23: 00 Glucose (Glutose) 15 gm Q15M PRN BUCCAL DECREASED GLUCOSE; Start 04/08/17 at 23:00 Zolpidem Tartrate (Ambien) 5 mg HS PRN PO INSOMNIA Last administered on 00:03; Admin Dose 5 MG; Start 04/09/17 at 00:00 KAYLA JACKSON Apr 09, 2017 19:29
--- NOTE | 2017-04-09 20:53 | RADRPT ---
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 Physician: CHERRY KELLEY Quality: Good Procedures: Transthoracic echocardiogram with complete 2D, M-Mode, and doppler examination. Indications: History of Stroke. 2D/M Mode Doppler Measurement Value Normal Ranges Measurement Value Normal Ranges AoR Diam MM 3.3 cm CELSO Vmax 2.4 cm2 ACS MM 1.9 cm CELSO VTI 2.4 cm2 LA/Ao MM 1.0 AV Peak Duglas 1.2 m/sec LA Dimen MM 3.4 cm AV Peak PG 5.4 mmHg LVIDd 2D 4.5 3.5 - 5.6 cm LVOT Peak Duglas 1.0 m/sec LVIDs 2D 2.9 2.1 - 4.1 cm LVOT Peak PG 3.6 mmHg LVPWd 2D 1.0 0.6 - 1.1 cm MV E Peak Duglas 0.5 m/sec IVSd 2D 0.9 0.6 - 1.1 cm MV A Peak Duglas 0.7 m/sec EDV 2D 93.3 cm3 MV E/A 0.7 ESV 2D 25.6 cm3 MV Decel Time 285 msec EF 2D 64.0 50.0 - 65.0 % MV Decel Larue 2 LVOT Diam 1.9 cm MV E/A 0.7 Findings Left Ventricle: Normal left ventricular systolic function. Overall, normal left ventricular systolic function. Not all segments visualized. Normal left ventricular cavity size. Ejection fraction is visually estimated at 55 %. Right Ventricle: Normal right ventricular size. Left Atrium: The left atrium is normal in size. Right Atrium: The right atrium is normal in size. Mitral Valve: Normal appearance of the mitral valve. Trace mitral regurgitation. Aortic Valve: Normal appearance of the aortic valve. No significant aortic stenosis or insufficiency. Tricuspid Valve: Unable to obtain RVSP due to minimal presence of tricuspid regurgitation. Pulmonic Valve: Normal pulmonic valve appearance. Pericardium: Possible trivial pericardial effusion anteriorly. Aorta: Normal aortic root. IVC: The IVC is not well visualized. Conclusions 1.Normal left ventricular systolic function. Overall, normal left ventricular systolic function. Not all segments visualized. Normal left ventricular cavity size. Ejection fraction is visually estimated at 55 %. 2.Normal appearance of the mitral valve. Trace mitral regurgitation. 3.Unable to obtain RVSP due to minimal presence of tricuspid regurgitation. Electronically Signed By: Anant Hill 09-Apr-2017 20:52:07 -0700 Patient Name: MARIAJOSE STUART Study Date: 09-Apr-[id number]
[2017-04-09] MEDS: ATORVASTATIN 40 MG TAB PO SCH (21:28)
[2017-04-09] MEDS: INSULIN GLARGINE [LANtus] 3 ML PEN SC SCH (21:33)
[2017-04-09 22:49] LABS: ADD UMIC NO; UR ASCORBIC ACID NEGATIVE (NEGATIVE); UR BILIRUBIN (Dip) NEGATIVE (NEGATIVE); UR BLOOD (Dip) NEGATIVE (NEGATIVE); UR CLARITY CLEAR (CLEAR); UR COLOR YELLOW (YELLOW); UR GLUCOSE (Dip) 3+ mg/dL (NEGATIVE); UR KETONES (Dip) TRACE mg/dL (NEGATIVE); UR LEUKOCYTE ESTERASE (Dip) NEGATIVE Leu/ul (NEGATIVE); UR NITRITE (Dip) NEGATIVE (NEGATIVE); UR TOTAL PROTEIN (Dip) NEGATIVE (NEGATIVE); UR UROBILINOGEN (Dip) NEGATIVE (NEGATIVE)
[2017-04-10] VITALS (11 sets, daily range): BP systolic 114–132; BP diastolic 70–89; PULSE 64–93; RESP 17–20
[2017-04-10] MEDS: ACCU-CHEK XX SCH (02:00)
[2017-04-10] MEDS: INSULIN ASPART [NOVOLOG] 3 ML PEN SC SCH ×4 (08:00→20:58)
[2017-04-10 08:18] LABS: BASOPHILS % 0.5 % (0.0-2.0); EOSINOPHILS # 0.1 10^3/ul (0.0-0.5); EOSINOPHILS % 1.3 % (0.0-7.0); HEMATOCRIT 37.7 % (37.0-47.0); HEMOGLOBIN 11.4 g/dl (12.0-16.0); LYMPHOCYTES # 2.5 10^3/ul (0.8-2.9); LYMPHOCYTES % 33.4 % (15.0-51.0); MEAN CORPUSCULAR HEMOGLOBIN 23.7 pg (29.0-33.0); MEAN CORPUSCULAR HGB CONC 30.2 g/dl (32.0-37.0); MEAN CORPUSCULAR VOLUME 78.2 fl (82.0-101.0); MONOCYTE # 0.4 10^3/ul (0.3-0.9); NEUTROPHIL # 4.4 10^3/ul (1.6-7.5); NEUTROPHILS % 59.5 % (39.0-77.0); PLATELET COUNT 377 10^3/UL (140-415); RED BLOOD COUNT 4.82 10^6/ul (4.20-5.40); RED CELL DISTRIBUTION WIDTH 15.7 % (11.5-14.5); WHITE BLOOD COUNT 7.5 10^3/ul (4.8-10.8)
[2017-04-10 08:45] LABS: CALCIUM 8.7 mg/dl (8.4-10.2); CREATININE 0.65 mg/dl (0.44-1.00); POTASSIUM 3.9 mmol/L (3.5-5.1)
[2017-04-10] MEDS: CLOPIDOGREL 75 MG TAB PO SCH (09:25)
[2017-04-10] MEDS: AMLODIPINE 5 MG TAB PO SCH (09:25)
[2017-04-10] MEDS: ACETAMINOPHEN 325 MG TAB PO PRN ×2 (09:37→20:10)
--- NOTE | 2017-04-10 12:04 | PN ---
Date/Time of Note Date/Time of Note DATE: 04/10/17 TIME: 12:03 Assessment/Plan VTE Prophylaxis VTE Prophylaxis Intervention: other Lines/Catheters IV [facility] Type [facility]from [facility]): Saline Lock Assessment/Plan Chief Complaint/Hosp Course - Recurrent cerebrovascular accident. Continue Plavix. Dr. Enriquez is asked to see patient in neurology consultation. - Hypertension. - Diabetes mellitus. HglA1c 7.0 continue Lantus and NovoLog - Hyperlipidemia, continue Lipitor - Anxiety and possible depression. Problems: Subjective 24 Hr Interval Summary Free Text/Dictation Patient feeling better Exam/Review of Systems Vital Signs Vitals Vital Signs Date Time Temp Pulse Resp B/P Pulse Ox O2 Delivery O2 Flow Rate FiO2 04/10/17 11:54 97.4 61 18 125/81 98 04/08/17 18:30 Room Air Intake and Output 04/09/17 04/09/17 04/10/17 15:00 23:00 07:00 Intake Total 1350 ml 460 ml Balance 1350 ml 460 ml Exam Constitutional: well developed Head: atraumatic, normocephalic Neck: supple Cardiovascular: regular rate and rhythm Gastrointestinal: non-tender, soft Extremities: normal pulses Results Result Diagram: 04/10/17 0737 04/10/17 0737 Results 24 hrs Laboratory Tests Test 04/09/17 17:15 04/09/17 18:40 04/09/17 21:11 04/10/17 07:37 Bedside Glucose 203 154 Urine Color YELLOW Urine Clarity CLEAR Urine pH 6.0 Urine Specific Rhine 1.030 Urine Ketones TRACE A Urine Nitrite NEGATIVE Urine Bilirubin NEGATIVE Urine Urobilinogen NEGATIVE Urine Leukocyte Esterase NEGATIVE Urine Hemoglobin NEGATIVE Urine Glucose 3+ H Urine Total Protein NEGATIVE White Blood Count 7.5 Red Blood Count 4.82 Hemoglobin 11.4 L Hematocrit 37.7 Mean Corpuscular Volume 78.2 L Mean Corpuscular Hemoglobin 23.7 L Mean Corpuscular Hemoglobin Concent 30.2 L Red Cell Distribution Width 15.7 H Platelet Count 377 Mean Platelet Volume 10.0 Neutrophils % 59.5 Lymphocytes % 33.4 Monocytes % 5.0 Eosinophils % 1.3 Basophils % 0.5 Nucleated Red Blood Cells % 0.0 Neutrophils # 4.4 Lymphocytes # 2.5 Monocytes # 0.4 Eosinophils # 0.1 Basophils # 0.0 Nucleated Red Blood Cells # 0.0 Sodium Level 134 L Potassium Level 3.9 Chloride Level 109 Carbon Dioxide Level 22 Anion Gap 7 L Blood Urea Nitrogen 21 H Creatinine 0.65 Glucose Level 153 Calcium Level 8.7 Test 04/10/17 08:45 Bedside Glucose 137 Medications Medications Current Medications Alprazolam (Xanax) 0.25 mg BID PRN PO ANXIETY Last administered on 04/08/17 22:36; Admin Dose 0.25 MG; Start 04/08/17 at 21:00 Amlodipine Besylate (Norvasc) 5 mg DAILY PO Last administered on 04/10/17 09: 25; Admin Dose 5 MG; Start 04/09/17 at 09:00 Atorvastatin Calcium (Lipitor) 40 mg HS PO Last administered on 04/09/17 21: 28; Admin Dose 40 MG; Start 04/08/17 at 21:00 Clopidogrel Bisulfate (plaVIX) 75 mg DAILY PO Last administered on 04/10/17 09:25; Admin Dose 75 MG; Start 04/09/17 at 09:00 Acetaminophen (Tylenol Tab) 650 mg Q4H PRN PO PAIN AND OR ELEVATED TEMP Last administered on 04/10/17 09:37; Admin Dose 650 MG; Start 04/08/17 at 21:30 Hydralazine HCl (Apresoline) 10 mg Q4H PRN IV ELEVATED BLOOD PRESSURE; Start 04/08/17 at 21:30 Insulin Glargine (Lantus) 10 unit DAILY@20 SC Last administered on 04/09/17 21:33; Admin Dose 10 UNIT; Start 04/09/17 at 20:00 Diagnostic Test (Pha) (Accu-Chek) 1 ea 02 XX Last administered on 04/09/17 03 :00; Admin Dose 1 EA; Start 04/09/17 at 02:00 Miscellaneous Information 1 ea NOTE XX ; Start 04/08/17 at 23:00 Glucose (Glutose) 15 gm Q15M PRN PO DECREASED GLUCOSE; Start 04/08/17 at 23:00 Glucose (Glutose) 22.5 gm Q15M PRN PO DECREASED GLUCOSE; Start 04/08/17 at 23: 00 Dextrose (D50w Syringe) 25 ml Q15M PRN IV DECREASED GLUCOSE; Start 04/08/17 at 23:00 Dextrose (D50w Syringe) 50 ml Q15M PRN IV DECREASED GLUCOSE; Start 04/08/17 at 23:00 Glucagon (Glucagen) 1 mg Q15M PRN IM DECREASED GLUCOSE; Start 04/08/17 at 23: 00 Glucose (Glutose) 15 gm Q15M PRN BUCCAL DECREASED GLUCOSE; Start 04/08/17 at 23:00 Zolpidem Tartrate (Ambien) 5 mg HS PRN PO INSOMNIA Last administered on t 21:29; Admin Dose 5 MG; Start 04/09/17 at 00:00 CARLEE HAIR Apr 10, 2017 12:04
[2017-04-10] MEDS: ALPRAZOLAM 0.25 MG TAB PO PRN (12:23)
[2017-04-10] MEDS: INSULIN GLARGINE [LANtus] 3 ML PEN SC SCH (20:11)
[2017-04-10] MEDS: ATORVASTATIN 40 MG TAB PO SCH (20:59)
[2017-04-10] MEDS: ZOLPIDEM 5 MG TAB PO PRN (23:00)
[2017-04-11] VITALS (10 sets, daily range): BP systolic 129–153; BP diastolic 73–84; PULSE 61–87; RESP 17–22
[2017-04-11] MEDS: ACCU-CHEK XX SCH (02:00)
[2017-04-11] MEDS: AMLODIPINE 5 MG TAB PO SCH (08:45)
[2017-04-11] MEDS: CLOPIDOGREL 75 MG TAB PO SCH (08:45)
[2017-04-11] MEDS: INSULIN ASPART [NOVOLOG] 3 ML PEN SC SCH ×4 (08:48→21:01)
--- NOTE | 2017-04-11 13:02 | PN ---
Date/Time of Note Date/Time of Note DATE: 04/11/17 TIME: 13:02 Assessment/Plan VTE Prophylaxis VTE Prophylaxis Intervention: other Lines/Catheters IV [facility] Saline Lock Assessment/Plan Chief Complaint/Hosp Course - Recurrent cerebrovascular accident. Continue Plavix. Dr. Enriquez is asked to see patient in neurology consultation. - Hypertension. - Diabetes mellitus. HglA1c 7.0 continue Lantus and NovoLog - Hyperlipidemia, continue Lipitor - Anxiety and possible depression. Problems: Subjective 24 Hr Interval Summary Free Text/Dictation Patient doing well, working with therapy Exam/Review of Systems Vital Signs Vitals Vital Signs Date Time Temp Pulse Resp B/P Pulse Ox O2 Delivery O2 Flow Rate FiO2 04/11/17 12:34 86 04/11/17 12:12 98.6 17 129/84 98 04/08/17 18:30 Room Air Intake and Output 04/10/17 04/10/17 04/11/17 15:00 23:00 07:00 Intake Total 900 ml 580 ml Balance 900 ml 580 ml Exam Constitutional: well developed Head: atraumatic, normocephalic Neck: supple Respiratory: clear to auscultation Cardiovascular: regular rate and rhythm Gastrointestinal: non-tender, soft Extremities: normal pulses Results Result Diagram: 04/10/17 0737 04/10/17 0737 Results 24 hrs Laboratory Tests Test 04/10/17 17:47 04/10/17 20:04 04/11/17 08:09 04/11/17 12:40 Bedside Glucose 205 150 155 178 Medications Medications Current Medications Alprazolam (Xanax) 0.25 mg BID PRN PO ANXIETY Last administered on 04/10/17 12:23; Admin Dose 0.25 MG; Start 04/08/17 at 21:00 Amlodipine Besylate (Norvasc) 5 mg DAILY PO Last administered on 04/11/17 08: 45; Admin Dose 5 MG; Start 04/09/17 at 09:00 Atorvastatin Calcium (Lipitor) 40 mg HS PO Last administered on 04/10/17 20: 59; Admin Dose 40 MG; Start 04/08/17 at 21:00 Clopidogrel Bisulfate (plaVIX) 75 mg DAILY PO Last administered on 04/11/17 08:45; Admin Dose 75 MG; Start 04/09/17 at 09:00 Acetaminophen (Tylenol Tab) 650 mg Q4H PRN PO PAIN AND OR ELEVATED TEMP Last administered on 04/10/17 20:10; Admin Dose 650 MG; Start 04/08/17 at 21:30 Hydralazine HCl (Apresoline) 10 mg Q4H PRN IV ELEVATED BLOOD PRESSURE; Start 04/08/17 at 21:30 Insulin Glargine (Lantus) 10 unit DAILY@20 SC Last administered on 04/10/17 20:11; Admin Dose 10 UNIT; Start 04/09/17 at 20:00 Diagnostic Test (Pha) (Accu-Chek) 1 ea 02 XX Last administered on 04/09/17 03 :00; Admin Dose 1 EA; Start 04/09/17 at 02:00 Miscellaneous Information 1 ea NOTE XX ; Start 04/08/17 at 23:00 Glucose (Glutose) 15 gm Q15M PRN PO DECREASED GLUCOSE; Start 04/08/17 at 23:00 Glucose (Glutose) 22.5 gm Q15M PRN PO DECREASED GLUCOSE; Start 04/08/17 at 23: 00 Dextrose (D50w Syringe) 25 ml Q15M PRN IV DECREASED GLUCOSE; Start 04/08/17 at 23:00 Dextrose (D50w Syringe) 50 ml Q15M PRN IV DECREASED GLUCOSE; Start 04/08/17 at 23:00 Glucagon (Glucagen) 1 mg Q15M PRN IM DECREASED GLUCOSE; Start 04/08/17 at 23: 00 Glucose (Glutose) 15 gm Q15M PRN BUCCAL DECREASED GLUCOSE; Start 04/08/17 at 23:00 Zolpidem Tartrate (Ambien) 5 mg HS PRN PO INSOMNIA Last administered on 23:00; Admin Dose 5 MG; Start 04/09/17 at 00:00 CARLEE HAIR Apr 11, 2017 13:02
[2017-04-11] MEDS: ACETAMINOPHEN 325 MG TAB PO PRN (16:05)
[2017-04-11] MEDS: ALPRAZOLAM 0.25 MG TAB PO PRN (16:05)
[2017-04-11] MEDS: ATORVASTATIN 40 MG TAB PO SCH (20:58)
[2017-04-11] MEDS: INSULIN GLARGINE [LANtus] 3 ML PEN SC SCH (20:59)
[2017-04-11] MEDS: ZOLPIDEM 5 MG TAB PO PRN (21:05)
[2017-04-12] VITALS (12 sets, daily range): BP systolic 134–151; BP diastolic 77–94; PULSE 66–109; RESP 17–20
[2017-04-12] MEDS: ACCU-CHEK XX SCH (02:00)
[2017-04-12] MEDS: AMLODIPINE 5 MG TAB PO SCH (08:47)
[2017-04-12] MEDS: CLOPIDOGREL 75 MG TAB PO SCH (08:47)
[2017-04-12] MEDS: INSULIN ASPART [NOVOLOG] 3 ML PEN SC SCH ×5 (08:48→21:11)
[2017-04-12] MEDS: ACETAMINOPHEN 325 MG TAB PO PRN (10:16)
--- NOTE | 2017-04-12 15:40 | PN ---
Date/Time of Note Date/Time of Note DATE: 04/12/17 TIME: 15:32 Assessment/Plan VTE Prophylaxis VTE Prophylaxis Intervention: SCD's Lines/Catheters IV [facility]from [facility] Saline Lock Assessment/Plan Chief Complaint/Hosp Course Patient complains of headache however denies any dizziness denies any shortness of breath denies chest pain. Will adjust insulin to better controlled for blood sugar, continue PT OT Assessment/Plan - Recurrent cerebrovascular accident. Continue Plavix. Dr. Sebastian is asked to see patient in neurology consultation. - Hypertension. - Diabetes mellitus. HglA1c 7.0 continue Lantus and NovoLog - Hyperlipidemia, continue Lipitor - Anxiety and possible depression. Further recommendations based on clinical course. Plan of care discussed with Dr. Smith Problems: Exam/Review of Systems Vital Signs Vitals Vital Signs Date Time Temp Pulse Resp B/P Pulse Ox O2 Delivery O2 Flow Rate FiO2 04/12/17 12:12 85 04/12/17 11:52 98.1 17 142/84 98 04/08/17 18:30 Room Air Intake and Output 04/11/17 04/11/17 04/12/17 15:00 23:00 07:00 Intake Total 1000 ml 400 ml Balance 1000 ml 400 ml Exam Constitutional: alert, oriented Respiratory: normal air movement Cardiovascular: nl pulses Gastrointestinal: non-tender, soft Neurological: nl mental status Skin: other (Right-sided weakness) Results Result Diagram: 04/10/17 0737 04/10/17 0737 Results 24 hrs Laboratory Tests Test 04/11/17 18:07 04/11/17 20:56 04/12/17 01:22 04/12/17 07:51 Bedside Glucose 213 194 221 H 177 Test 04/12/17 11:34 Bedside Glucose 213 Medications Medications Current Medications Alprazolam (Xanax) 0.25 mg BID PRN PO ANXIETY Last administered on 04/11/17 16:05; Admin Dose 0.25 MG; Start 04/08/17 at 21:00 Amlodipine Besylate (Norvasc) 5 mg DAILY PO Last administered on 04/12/17 08: 47; Admin Dose 5 MG; Start 04/09/17 at 09:00 Atorvastatin Calcium (Lipitor) 40 mg HS PO Last administered on 04/11/17 20: 58; Admin Dose 40 MG; Start 04/08/17 at 21:00 Clopidogrel Bisulfate (plaVIX) 75 mg DAILY PO Last administered on 04/12/17 08:47; Admin Dose 75 MG; Start 04/09/17 at 09:00 Acetaminophen (Tylenol Tab) 650 mg Q4H PRN PO PAIN AND OR ELEVATED TEMP Last administered on 04/12/17 10:16; Admin Dose 650 MG; Start 04/08/17 at 21:30 Hydralazine HCl (Apresoline) 10 mg Q4H PRN IV ELEVATED BLOOD PRESSURE; Start 04/08/17 at 21:30 Insulin Glargine (Lantus) 10 unit DAILY@20 SC Last administered on 04/11/17 20:59; Admin Dose 10 UNIT; Start 04/09/17 at 20:00 Diagnostic Test (Pha) (Accu-Chek) 1 ea 02 XX Last administered on 04/09/17 03 :00; Admin Dose 1 EA; Start 04/09/17 at 02:00 Miscellaneous Information 1 ea NOTE XX ; Start 04/08/17 at 23:00 Glucose (Glutose) 15 gm Q15M PRN PO DECREASED GLUCOSE; Start 04/08/17 at 23:00 Glucose (Glutose) 22.5 gm Q15M PRN PO DECREASED GLUCOSE; Start 04/08/17 at 23: 00 Dextrose (D50w Syringe) 25 ml Q15M PRN IV DECREASED GLUCOSE; Start 04/08/17 at 23:00 Dextrose (D50w Syringe) 50 ml Q15M PRN IV DECREASED GLUCOSE; Start 04/08/17 at 23:00 Glucagon (Glucagen) 1 mg Q15M PRN IM DECREASED GLUCOSE; Start 04/08/17 at 23: 00 Glucose (Glutose) 15 gm Q15M PRN BUCCAL DECREASED GLUCOSE; Start 04/08/17 at 23:00 Zolpidem Tartrate (Ambien) 5 mg HS PRN PO INSOMNIA Last administered on 21:05; Admin Dose 5 MG; Start 04/09/17 at 00:00 KAYLA JACKSON Apr 12, 2017 15:40
[2017-04-12 17:41] LABS: ALBUMIN 3.8 g/dl (3.3-4.9); ALBUMIN/GLOBULIN RATIO 1.02; BILIRUBIN,INDIRECT 0.1 mg/dl (0-1.1); BILIRUBIN,TOTAL 0.1 mg/dl (0.2-1.3); CREATININE 0.64 mg/dl (0.44-1.00); POTASSIUM 4.1 mmol/L (3.5-5.1); TOTAL PROTEIN 7.5 g/dl (6.1-8.1)
--- NOTE | 2017-04-12 18:12 | RADRPT ---
PROCEDURE: US Carotids. CLINICAL INDICATION: Dizziness. TECHNIQUE: Multiple sonographic of the carotid bifurcation region and vertebral arteries were obta ined utilizing velasquez scale, duplex and color-flow imaging. The images were reviewed on a PACS worksta tion. COMPARISON: None FINDINGS: Evaluation of the right carotid bifurcation region reveals no significant calcific atherosclerotic d isease. Evaluation of the left carotid bifurcation region reveals no significant calcific atherosclerotic di sease. There is antegrade flow within the vertebral arteries bilaterally. RIGHT CAROTID MEASUREMENTS: Common Carotid [id number] (cm/sec) Internal Carotid Artery - (cm/sec) Internal Carotid Artery - mid68 (cm/sec) Internal Carotid Artery - (cm/sec) Internal Carotid/Common Carotid0.9 LEFT CAROTID MEASUREMENTS: Common Carotid Artery 67 (cm/sec) Internal Carotid Artery - proximal 31 (cm/sec) Internal Carotid Artery - mid 44 (cm/sec) Internal Carotid Artery - distal 59 (cm/sec) Internal Carotid/Common Carotid 0.9 IMPRESSION: 1. No evidence of a significant stenosis of the right internal carotid artery. 2. No evidence of a significant stenosis of the left internal carotid artery. 3. Normal antegrade flow in the vertebral arteries bilaterally. Measurement of carotid stenosis is based on peak systolic and diastolic velocity parameters that cor relate to the residual internal carotid diameter with [place] Symptomatic Carotid Endarterect antonia Trial (NASCET) based stenosis levels. Normal ( < 50% )- ICA peak systolic velocity < 125 cm/sec, ICA / CCA ratio < 2.0 Moderate stenosis ( 50 - 69% )- ICA peak systolic velocity 125 - 230 cm/sec, ICA / CCA ratio 2.0 - 4.0 Severe stenosis ( >70% )- ICA peak systolic velocity > 230 cm/sec, ICA / CCA ratio > 4.0 RPTAT:AAJJ Physician Veronica Date Time Electronically viewed and signed by Physician Veronica on 04/12/2017 18:12 /
[2017-04-12] MEDS: ZOLPIDEM 5 MG TAB PO PRN (21:02)
[2017-04-12] MEDS: ATORVASTATIN 40 MG TAB PO SCH (21:03)
[2017-04-12] MEDS: INSULIN GLARGINE [LANtus] 3 ML PEN SC SCH (21:11)
[2017-04-13] VITALS (10 sets, daily range): BP systolic 112–149; BP diastolic 70–90; PULSE 66–91; RESP 17–20
[2017-04-13] MEDS ORDERED: ACCU-CHEK XX SCH ×2 (02:00)
--- NOTE | 2017-04-13 04:31 | CONS ---
DATE OF ADMISSION: 04/08/2017 DATE OF CONSULTATION: NEUROLOGICAL CONSULTATION Thank you, Dr. Smith, for your kind referral for evaluation of dizziness and headache, possible n ew stroke. HISTORY OF PRESENT ILLNESS: The patient is known to me from the office, I saw her about a month ago . Essentially, she is a 51-year-old with hypertension, diabetes, dyslipidemia and history of 2 stro kes, one in 2014. At that time, presented with dizziness, transferred to [facility]. She had thrombectomy . And another stroke was in August 2015, left frontotemporal parietal, when patient was off medicati ons. That was in August of 2015. Patient also has history of depression. She has been on aspirin, Plavix, statin. This time, patient presented with few days of dizziness, also stated that she felt some slurred speech and increased weakness on the right side. To me, she mentioned that her dizzine ss was intermittent, predominantly with movement, relatively short lasting and getting better when s he is still. Dizziness was vertiginous. No complaints of hearing problems or ringing in the ears. By now, dizziness has almost completely resolved. She had MRI of the brain which did not show any acute abnormality. She also had carotid ultrasound which did not show hemodynamically significant lesions. Her labs show borderline anemia, hemoglobin 11, hematocrit 37, normal CBC otherwise. Hemoglobin A1c 7. Comprehensive metabolic panel within n ormal limits. Normal PT, PTT. Urinalysis shows urinary tract infection. Tox screen was negative. ALLERGIES: NONE. SOCIAL HISTORY: No alcohol, tobacco, drug use. FAMILY HISTORY: Noncontributory. CURRENT MEDICATIONS: 1. Insulin sliding scale. 2. Amlodipine. 3. Plavix. 4. Zolpidem. 5. Hydralazine. 6. Xanax. 7. Lipitor 40 mg. According to my notes from office, she was also taking aspirin 81 mg, as well as Topamax 100 mg twic e daily. She did have history of headaches. PHYSICAL EXAMINATION: Today, VITAL SIGNS: Temperature 97.7, pulse 87, 20 respirations, 144/94 blood pressure. GENERAL: Not in acute distress, lying in bed. HEENT: Normocephalic, atraumatic head. NECK: No carotid bruits, lymphadenopathy, thyromegaly. LUNGS: Clear to auscultation bilaterally. CARDIAC: Normal cardiac rhythm and sounds. ABDOMEN: Soft, nontender. EXTREMITIES: No cyanosis, clubbing or edema. NEUROLOGIC: She is awake, alert, oriented x3 with fluent speech. Cranial nerve examination shows i ntact visual beyer bilaterally. Pupils reactive from 3 to 2 mm bilaterally. Extraocular movements intact without nystagmus. Decreased sensation on the right side of the face, normal strength of th e face. The patient has right palpebral fissure, slightly smaller. Tongue is in midline. Palate e levates symmetrically. Motor strength examination shows about 4/5 strength on the left side and may be 4-, 3+ on the right side. There is clearly some exaggeration of the weakness, which gets better with reassurance and distraction. No pronator drift, but down drift of the right upper extremity. Sensory examination decreased on the right side. Deep tendon reflexes 2+ throughout. Coordination preserved on [id number] testing on the left, seems to be somewhat slower on the right. Gait w as not assessed. IMPRESSION: History of cerebrovascular accidents. Risk factors are her hypertension and diabetes. The patient presented with intermittent positional vertigo. She stated that prior to admission, sh e was dizzy, even with turning in bed which is common with benign positional type vertigo. The vert igo almost completely resolved, so we will use meclizine p.r.n. I will restart and continue a spirin and Plavix, as well as statin. Continue physical therapy. I think the patient could be safe ly discharged home given that MRI did not confirm presence of a stroke. Dictated By: RENZO BRANDON/VANDANA Conf#: [id number] DID#: [id number] CC: CHERRY SMITH MD;*EndCC*
[2017-04-13] MEDS: INSULIN ASPART [NOVOLOG] 3 ML PEN SC SCH ×7 (08:26→20:36)
[2017-04-13] MEDS: AMLODIPINE 5 MG TAB PO SCH (08:29)
[2017-04-13] MEDS: CLOPIDOGREL 75 MG TAB PO SCH (08:29)
[2017-04-13 08:47] LABS: CALCIUM 8.9 mg/dl (8.4-10.2); CREATININE 0.68 mg/dl (0.44-1.00); POTASSIUM 3.9 mmol/L (3.5-5.1)
[2017-04-13] MEDS: ACETAMINOPHEN 325 MG TAB PO PRN (12:31)
[2017-04-13] MEDS ORDERED: LEVOFLOXACIN 500MG/D5W (PMX) 100 ML IVPB SCH (15:30)
[2017-04-13] MEDS: ALPRAZOLAM 0.25 MG TAB PO PRN (17:20)
--- NOTE | 2017-04-13 17:27 | DS ---
Date/Time of Note Date/Time of Note DATE: 04/13/17 TIME: 17:25 Discharge Summary Admission/Discharge Info Admit Date/Time Apr 08, 2017 at 16:25 Discharge Date/Time Patient Condition: Stable Hx of Present Illness The patient is an 51-year-old female well known to me from previous admission. The patient has a history of hypertension and CVA, which was diagnosed back in May 2016. The patient had residual right-sided weakness and uses a cane for ambulation. The patient, yesterday, noted dizziness and slurred speech and also noted increasing weakness in the right side. The patient reported the symptoms started last night; however, they did not seek medical advice and, therefore, came to the ER today. The patient did not have any headache or seizure. The patient did not have any chest congestion and was able to manage her oral secretions. The patient underwent CT of the head, which revealed sudden loss of velasquez-white differentiation within the left parietotemporal lobe, suspicious for acute/recent infarction. MRI will be ordered for further evaluation. The patient denies any chest pain, abdominal pain. No reported leg edema. No reported resting leg pain. Hospital Course Patient complains of headache however denies any dizziness denies any shortness of breath denies chest pain. Will adjust insulin to better controlled for blood sugar, continue PT OT Assessment/Plan - Recurrent cerebrovascular accident vs TIA. Continue Aspirin and Plavix. Dr. Sebastian is asked to see patient in neurology consultation.intermittent positional vertigo. No carotin stenosis per carotid Doppler. - Intermittent positional vertigo - Hypertension. - Diabetes mellitus. HglA1c 7.0 continue Lantus and NovoLog - Hyperlipidemia, continue Lipitor - Anxiety and possible depression. Further recommendations based on clinical course. Plan of care discussed with Dr. Smith [place] Meds Active Scripts Ondansetron (Ondansetron Odt) 4 Mg Tab.rapdis, 4 MG PO Q6H Y for NAUSEA AND/OR VOMITING, #30 TAB Prov:DEEPAK JACOME MD 11/12/16 Ibuprofen* (Motrin*) 800 Mg Tab, 800 MG PO Q6H Y for PAIN AND OR ELEVATED TEMP, #30 TAB Prov:DEEPAK JACOME MD 11/12/16 Dicyclomine Hcl* (Bentyl*) 10 Mg Capsule, 10 MG PO QID Y for abdominal cramping , #30 CAP Prov:DEEPAK JACOME MD 11/12/16 Reported Medications Sertraline Hcl* (Sertraline Hcl*) 50 Mg Tablet, 50 MG PO DAILY, #30 TAB 06/06/16 Sitagliptin Phos/Metformin HCl (Janumet 50-1,000 mg Tablet) 1 Each Tablet, 1 EACH PO BID, TAB 06/06/16 Aspirin* (Aspirin* EC) 81 Mg Tablet.dr, 81 MG PO DAILY, TAB 06/06/16 Clopidogrel Bisulfate (Clopidogrel) 75 Mg Tablet, 75 MG PO DAILY, #30 TAB 06/06/16 Alprazolam* (Alprazolam*) 0.25 Mg Tablet, 0.25 MG PO BID Y for ANXIETY, TAB 06/06/16 Metoprolol Succinate* (Toprol XL*) 50 Mg Tab.er.24h, 50 MG PO DAILY, #30 TAB 06/06/16 Amlodipine Besylate* (Norvasc*) 5 Mg Tablet, 5 MG PO DAILY, TAB 06/06/16 Empagliflozin (Jardiance) 10 Mg Tablet, 10 MG PO DAILY, TAB 06/06/16 Topiramate* (Topiramate*) 100 Mg Tablet, 100 MG PO BID, TAB 06/06/16 Primary Care Provider Tyrel Wasserman Pending Labs Laboratory Tests Test 04/12/17 17:28 04/12/17 21:01 04/13/17 07:10 04/13/17 08:22 Bedside Glucose 274mg/dL (70-220) 182mg/dL (70-220) 188mg/dL (70-220) Sodium Level 141mmol/L (135-144) Potassium Level 3.9mmol/L (3.5-5.1) Chloride Level 107mmol/L (97-110) Carbon Dioxide Level 26mmol/L (21-31) Anion Gap 12 (8-16) Blood Urea Nitrogen 19mg/dl (7-20) Creatinine 0.68mg/dl (0.44-1.00) Glucose Level 190mg/dl (70-220) Calcium Level 8.9mg/dl (8.4-10.2) Test 04/13/17 12:17 04/13/17 17:18 Bedside Glucose 185mg/dL (70-220) 223mg/dL (70-220) KAYLA JACKSON Apr 13, 2017 17:27
[2017-04-13] MEDS: ATORVASTATIN 40 MG TAB PO SCH (20:28)
[2017-04-13] MEDS: INSULIN GLARGINE [LANtus] 3 ML PEN SC SCH (20:34)
[2017-04-13] MEDS: ZOLPIDEM 5 MG TAB PO PRN (20:39)
== END 2017-04-13 20:55 | DRG 65 ==
LOC: E/R 14:14 → MS4 16:25
PROVIDERS: ADMIT Internal Medicine; ATTEND Internal Medicine
DX: I63.9 Cerebral infarction, unspecified (principal); I69.351 Hemiplegia and hemiparesis following cerebral infarction affecting right dominant side; I10 Essential (primary) hypertension; N39.0 Urinary tract infection, site not specified; G45.9 Transient cerebral ischemic attack, unspecified; H81.10 Benign paroxysmal vertigo, unspecified ear; F32.9 Major depressive disorder, single episode, unspecified; E11.9 Type 2 diabetes mellitus without complications; R47.81 Slurred speech; E78.00 Pure hypercholesterolemia, unspecified; F41.9 Anxiety disorder, unspecified; Z79.82 Long term (current) use of aspirin; Z79.02 Long term (current) use of antithrombotics/antiplatelets
CPT/HCPCS: 70450; 70551; 71010; 80048; 80053; 80061; 80307; 81001; 81003; 82962; 83036; 84484; 85025; 85610; 85730; 87086; 92523; 92610; 93005; 93306; 93880; 96374; 97110; 97116; 97162; 97166; 97530; 97535; J0696; J1815; J1956; J7040

== ENCOUNTER 2017-04-13 09:15 | Inpatient (IN) | payer OTHER ==
[~2017-04-13] VITALS: Ht 160 cm; Wt 85.0 kg
[2017-04-13 22:00] VITALS: BP 128/84; RESP 18; Ht 160 cm; Wt 85.0 kg
[2017-04-13] MEDS ORDERED: GLUCOSE GEL 15 GRAM TUBE PO PRN ×2 (22:30)
[2017-04-13] MEDS ORDERED: DEXTROSE 50% 50 ML SYRINGE IV PRN ×2 (22:30)
[2017-04-13] MEDS ORDERED: GLUCOSE GEL 15 GRAM TUBE BUCCAL PRN (22:30)
[2017-04-13] MEDS ORDERED: GLUCAGON 1 MG INJ IM PRN (22:30)
[2017-04-14] MEDS ORDERED: BISACODYL 10 MG SUPP PR PRN
[2017-04-14] MEDS ORDERED: LACTULOSE 30ML CUP PO PRN
[2017-04-14] MEDS ORDERED: MAGNESIUM HYDROXIDE 30ML CUP PO PRN
[2017-04-14] MEDS: ACCUCHECK AT 2AM (Patients on SS coverage) XX SCH (03:00)
[2017-04-14 03:14] VITALS: BP 149/84; RESP 18
[2017-04-14] MEDS: LEVOFLOXACIN 500 MG TAB PO SCH (06:26)
[2017-04-14 06:53] LABS: BASOPHILS % 0.6 % (0.0-2.0); EOSINOPHILS # 0.1 10^3/ul (0.0-0.5); HEMATOCRIT 37.1 % (37.0-47.0); HEMOGLOBIN 11.3 g/dl (12.0-16.0); LYMPHOCYTES # 2.7 10^3/ul (0.8-2.9); LYMPHOCYTES % 36.9 % (15.0-51.0); MEAN CORPUSCULAR HEMOGLOBIN 24.1 pg (29.0-33.0); MEAN CORPUSCULAR HGB CONC 30.5 g/dl (32.0-37.0); MEAN CORPUSCULAR VOLUME 79.3 fl (82.0-101.0); MONOCYTE # 0.4 10^3/ul (0.3-0.9); MONOCYTES % 6.1 % (0.0-11.0); NEUTROPHILS % 55.1 % (39.0-77.0); PLATELET COUNT 365 10^3/UL (140-415); RED BLOOD COUNT 4.68 10^6/ul (4.20-5.40); RED CELL DISTRIBUTION WIDTH 15.4 % (11.5-14.5); WHITE BLOOD COUNT 7.3 10^3/ul (4.8-10.8)
[2017-04-14 07:00] VITALS: BP 138/87; RESP 18
[2017-04-14 07:31] LABS: ALBUMIN 3.8 g/dl (3.3-4.9); ALBUMIN/GLOBULIN RATIO 1.22; BILIRUBIN,INDIRECT 0.2 mg/dl (0-1.1); BILIRUBIN,TOTAL 0.2 mg/dl (0.2-1.3); CALCIUM 8.5 mg/dl (8.4-10.2); CREATININE 0.62 mg/dl (0.44-1.00); TOTAL PROTEIN 6.9 g/dl (6.1-8.1)
[2017-04-14 07:34] LABS: ADD UMIC NO; UR ASCORBIC ACID NEGATIVE (NEGATIVE); UR BILIRUBIN (Dip) NEGATIVE (NEGATIVE); UR BLOOD (Dip) NEGATIVE (NEGATIVE); UR CLARITY CLEAR (CLEAR); UR COLOR YELLOW (YELLOW); UR GLUCOSE (Dip) 3+ mg/dL (NEGATIVE); UR KETONES (Dip) TRACE mg/dL (NEGATIVE); UR LEUKOCYTE ESTERASE (Dip) NEGATIVE Leu/ul (NEGATIVE); UR NITRITE (Dip) NEGATIVE (NEGATIVE); UR SPECIFIC GRAVITY (Dip) 1.028 (1.003-1.030); UR TOTAL PROTEIN (Dip) NEGATIVE (NEGATIVE); UR UROBILINOGEN (Dip) NEGATIVE (NEGATIVE)
[2017-04-14] MEDS: INSULIN ASPART [NOVOLOG] 3 ML PEN SC SCH ×3 (07:35→17:37)
[2017-04-14 08:00] VITALS: BP 138/87; PULSE 80; RESP 18
[2017-04-14] MEDS: AMLODIPINE 5 MG TAB PO SCH (08:55)
[2017-04-14] MEDS: ACETAMINOPHEN 325 MG TAB PO PRN (08:55)
[2017-04-14] MEDS: DOCUSATE SODIUM 100 MG CAP PO SCH ×2 (08:55→21:03)
[2017-04-14] MEDS: CLOPIDOGREL 75 MG TAB PO SCH (08:55)
[2017-04-14] MEDS: ASPIRIN (EC) 81 MG TAB PO SCH (08:55)
[2017-04-14] MEDS: Insulin NOVOLOG SS MILD Algorithm (SS with meals and bedtime) SC SCH ×4 (09:09→21:02)
--- NOTE | 2017-04-14 12:53 | HP ---
DATE OF ADMISSION: 04/13/2017 HISTORY OF PRESENT ILLNESS: The patient is a 51-year-old female with history of hypertension, diabe levi and patient with history of CVA x2, last one was in May 2016. Patient also had residual ri ght-sided weakness and uses cane for ambulation. The patient experienced a new episode of dizziness and slurred speech and was evaluated for a possible stroke. The patient was diagnosed with possibl e stroke versus TIA and was evaluated by Dr. Mora in neurology consultation. The patient w as also diagnosed with intermittent positional vertigo. The patient continued on aspirin and Plavix . The patient was also noted increasing weakness on the right side. The patient's symptoms improve d and patient returned to close to baseline and patient is admitted to acute rehabilitation for phys ical and occupational therapy. PAST MEDICAL HISTORY: Positive for hypertension and diabetes and history of stroke. PAST SURGICAL HISTORY: Status post endometrial ablation. ALLERGIES: NO KNOWN ALLERGIES. MEDICATIONS ON ADMISSION: 1. Zofran p.r.n. for nausea. 2. Ibuprofen. 3. Sertraline. 4. Janumet. 5. Aspirin 6. Plavix. 7. Alprazolam. 8. Metoprolol. 9. Norvasc. 10. Jardiance. 11. Topiramate. REVIEW OF SYSTEMS: A 12-point review of systems is negative unless what mentioned in the HPI. PHYSICAL ASSESSMENT: GENERAL: Well-developed, well-nourished female currently is awake, alert. VITAL SIGNS: Temperature 98.0, pulse is 80, blood pressure is 138/87, respiratory rate 18, oxygen 9 4% on room air. HEENT: Head is atraumatic, normocephalic. Pupils equal, round, reactive to light and accommodation . Oral mucosa is pink and moist. NECK: Supple, no cervical lymphadenopathy, no thyromegaly. CHEST: Lungs clear bilaterally clear. There are no rhonchi, wheezes, rales noted. CARDIOVASCULAR: Normal S1, S2. No murmurs, gallops, clicks, rubs noted. ABDOMEN: Round, soft, nondistended, nontender. Bowel sounds present. EXTREMITIES: There is no edema, clubbing, cyanosis. NEUROLOGIC: Patient has a right upper and lower extremity weakness, speech is clear. The patient i s alert and oriented x4. ASSESSMENT AND PLAN: 1. Recurrent stroke versus TIA. Continue patient on aspirin and Plavix. 2. Intermittent positional vertigo, resolved. 3. Hypertension. Continue metoprolol. 4. Diabetes mellitus with hemoglobin A1c 7.0. Continue Janumet and Jardiance. We will continue La ntus and add premeal NovoLog. 5. Hyperlipidemia. Continue statin. 6. Anxiety and depression. Continue alprazolam p.r.n. Continue physical and occupational therapy. 7. Escherichia coli urinary tract infection. Continue Levaquin. Further recommendations based on clinical course. Plan of care discussed with Dr. Smith. Dictated By: KAYLA JACKSON LEAD BUSINESS ANALYST for CHERRY SMITH MD SR/NTS Conf#: [id number] DID#: [id number]
--- NOTE | 2017-04-14 13:53 | CONS ---
DATE OF ADMISSION: 04/13/2017 DATE OF CONSULTATION: 04/14/2017 TYPE OF CONSULTATION: Rehabilitation post-admission physician evaluation. REHABILITATION IMPAIRMENT CATEGORY: Left lateral temporal lobe infarct cerebrovascular accident. ACTIVE COMORBIDITIES: 1. History of cerebrovascular accident x2 with residual right-sided weakness. 2. Hypertension. 3. Diabetes mellitus. 4. Hyperlipidemia. 5. History of thrombectomy. 6. Depression. 7. Urinary tract infection. 8. Impairments in self-care, mobility and cognition. HISTORY OF PRESENT ILLNESS: The patient is a pleasant 51-year-old right-handed female with a history of CVA x2 with residual right-sided weakness who was admitted with increased dizziness, dysarthria and right-sided weakness. A head CT was performed and did demonstrate a left parietotemporal lobe acute recent infarct. The patient was followed closely by neurology. Subsequent MRI without evidence of bleed. The patient felt to have component of intermittent vertigo. The patient noted to have significant impairments in self-care and mobility as compared to baseline, and has been cleared to transfer to the rehabilitation unit for comprehensive interdisciplinary rehab care. FUNCTIONAL HISTORY: Prior to recent events, she was independent in self-care tasks and mobility. Currently, she requires moderate assist for self-care and mobility tasks. I have reviewed the preadmission screen and the patient's current functional status is consistent with the preadmission screen. SOCIAL HISTORY: The patient lives at home with her daughter and hopes to return there upon discharge. PAST MEDICAL HISTORY: 1. History of cerebrovascular accident x2 with residual weakness. 2. History of thrombectomy. 3. Hypertension. 4. Diabetes mellitus. 5. Hyperlipidemia. 6. Depression. CURRENT MEDICATIONS: 1. Xanax p.r.n. 2. Norvasc 5 mg p.o. daily. 3. Lipitor 40 mg p.o. at bedtime. 4. Plavix 75 mg p.o. daily. 5. Insulin sliding scale. 6. Lantus 14 units subcutaneous daily. 7. Levothyroxine 500 mg p.o. daily. 8. Ambien p.r.n. ALLERGIES: THE PATIENT WITH NO KNOWN DRUG ALLERGIES. PHYSICAL EXAMINATION: VITAL SIGNS: The patient is currently afebrile with stable vital signs. HEENT: Extraocular motion intact. Oropharynx clear. NECK: Supple. LUNGS: Clear anteriorly. CARDIAC: S1, S2. ABDOMEN: Soft, nontender, positive bowel sounds. NEUROLOGIC: She is awake and alert. She is oriented to person and hospital and date. She has a notable dysarthria and some decreased thought processing speed. She will follow simple 1-step commands. She demonstrates antigravity strength in the left upper and lower extremity. Right upper extremity with 3- strength. Right lower extremity 3- strength. PLAN: The patient has been admitted for comprehensive interdisciplinary acute rehab and is anticipated to tolerate 3 hours of daily therapy in divided doses for at least 5/7 days a week. Treatment plan will include: 1. Physical therapy to focus on bed mobility, transfers, and household ambulation with the goal of having the patient reach standby assist level. 2. Occupational therapy to focus on hygiene, grooming, dressing, bathing, and toileting activities with the goal of having the patient reach standby assist level. 3. Speech therapy for full cognitive assessment and retraining with the goal of having the patient return to baseline cognition, improve verbal output and meet nutritional needs by mouth. 4. Rehabilitation nursing for carryover of therapeutic interventions, with the goal of continent of bowel and bladder, and the goal of patient and family education with regards to the aforementioned issues. ESTIMATED LENGTH OF STAY: 14 days. DISPOSITION GOAL: Home. Rehabilitation Barrier: Cognition Intervention for Barrier: Speech Therapy I acknowledge that I performed a full physical examination on this patient within 24 hours of admission to the rehabilitation unit. I believe the patient is a good candidate for comprehensive interdisciplinary rehab care and is anticipated to make reasonable goals in a reasonable period of time as outlined above. Dictated By: RADHA HANNAH/VANDANA Conf#: [id number] DID#: [id number] JORGE LUIS
[2017-04-14 20:00] VITALS: BP 150/80; RESP 18
[2017-04-14] MEDS: INSULIN GLARGINE [LANtus] 3 ML PEN SC SCH (21:02)
[2017-04-14] MEDS: SENNA TAB PO SCH (21:03)
[2017-04-14] MEDS: ATORVASTATIN 40 MG TAB PO SCH (21:03)
[2017-04-14] MEDS: ZOLPIDEM 5 MG TAB PO PRN (21:09)
[2017-04-15 02:00] VITALS: BP 128/77; RESP 18
[2017-04-15] MEDS: ACCUCHECK AT 2AM (Patients on SS coverage) XX SCH (02:42)
[2017-04-15] MEDS: LEVOFLOXACIN 500 MG TAB PO SCH (06:15)
[2017-04-15] MEDS: ACETAMINOPHEN 325 MG TAB PO PRN ×3 (06:16→16:04)
[2017-04-15 07:30] VITALS: BP 132/81; RESP 20
[2017-04-15] MEDS: Insulin NOVOLOG SS MILD Algorithm (SS with meals and bedtime) SC SCH ×4 (08:16→21:05)
[2017-04-15] MEDS ORDERED: INFLUENZA VIRUS VACCINE 0.5 ML (DISPENSING) IM* ONE (09:00)
[2017-04-15] MEDS: ASPIRIN (EC) 81 MG TAB PO SCH (09:01)
[2017-04-15] MEDS: AMLODIPINE 5 MG TAB PO SCH (09:01)
[2017-04-15] MEDS: CLOPIDOGREL 75 MG TAB PO SCH (09:01)
[2017-04-15] MEDS: DOCUSATE SODIUM 100 MG CAP PO SCH ×2 (09:01→20:58)
[2017-04-15] MEDS: INSULIN ASPART [NOVOLOG] 3 ML PEN SC SCH ×3 (09:09→17:41)
--- NOTE | 2017-04-15 13:00 | CONS ---
Date/Time of Note Date/Time of Note DATE: 04/15/17 TIME: 12:58 Consult Date/Type/Reason Admit Date/Time Apr 13, 2017 at 09:15 Initial Consult Date Subjective No new complaints Objective pulm-cta abd-soft min assist Vital Signs Date Time Temp Pulse Resp B/P Pulse Ox O2 Delivery O2 Flow Rate FiO2 04/15/17 07:30 97.9 74 20 132/81 98 04/14/17 08:00 Room Air Intake and Output 04/14/17 04/14/17 04/15/17 15:00 23:00 07:00 Intake Total 1200 ml 800 ml Output Total 800 ml 600 ml Balance 400 ml 200 ml Results/Medications Result Diagram: 04/14/17 0642 04/14/17 0642 Results 24 hrs Laboratory Tests Test 04/14/17 17:28 04/14/17 21:01 04/15/17 02:29 04/15/17 08:04 Bedside Glucose 246 H 209 197 187 Test 04/15/17 09:08 04/15/17 12:50 Bedside Glucose 271 H 151 Medications Current Medications Levofloxacin (Levaquin) 500 mg DAILY@06 PO Last administered on 04/15/17 06: 15; Admin Dose 500 MG; Start 04/14/17 at 06:00; Stop 04/18/17 at 06:01 Miscellaneous Information 1 ea NOTE XX ; Start 04/13/17 at 22:30 Glucose (Glutose) 15 gm Q15M PRN PO DECREASED GLUCOSE; Start 04/13/17 at 22:30 Glucose (Glutose) 22.5 gm Q15M PRN PO DECREASED GLUCOSE; Start 04/13/17 at 22: 30 Dextrose (D50w Syringe) 25 ml Q15M PRN IV DECREASED GLUCOSE; Start 04/13/17 at 22:30 Dextrose (D50w Syringe) 50 ml Q15M PRN IV DECREASED GLUCOSE; Start 04/13/17 at 22:30 Glucagon (Glucagen) 1 mg Q15M PRN IM DECREASED GLUCOSE; Start 04/13/17 at 22: 30 Glucose (Glutose) 15 gm Q15M PRN BUCCAL DECREASED GLUCOSE; Start 04/13/17 at 22:30 Zolpidem Tartrate (Ambien) 5 mg HS PRN PO INSOMNIA Last administered on 21:09; Admin Dose 5 MG; Start 04/13/17 at 22:30 Aspirin (Halfprin) 81 mg DAILY PO Last administered on 04/15/17 09:01; Admin Dose 81 MG; Start 04/14/17 at 09:00 Insulin Glargine (Lantus) 14 unit DAILY@20 SC Last administered on 04/14/17 21:02; Admin Dose 14 UNIT; Start 04/14/17 at 20:00 Diagnostic Test (Pha) (Accu-Chek) 1 ea 02 XX Last administered on 04/15/17 02 :42; Admin Dose 1 EA; Start 04/14/17 at 02:00 Acetaminophen (Tylenol Tab) 650 mg Q4H PRN PO PAIN AND OR ELEVATED TEMP Last administered on 04/15/17 09:05; Admin Dose 650 MG; Start 04/13/17 at 22:30 Alprazolam (Xanax) 0.25 mg BID PRN PO ANXIETY; Start 04/13/17 at 22:30 Amlodipine Besylate (Norvasc) 5 mg DAILY PO Last administered on 04/15/17 09: 01; Admin Dose 5 MG; Start 04/14/17 at 09:00 Atorvastatin Calcium (Lipitor) 40 mg DAILY@21 PO Last administered on 21:03; Admin Dose 40 MG; Start 04/14/17 at 21:00 Clopidogrel Bisulfate (plaVIX) 75 mg DAILY PO Last administered on 04/15/17 09:01; Admin Dose 75 MG; Start 04/14/17 at 09:00 Docusate Sodium (Colace) 100 mg BID PO Last administered on 04/15/17 09:01; Admin Dose 100 MG; Start 04/14/17 at 09:00 Senna (Senokot) 1 tab HS PO Last administered on 04/14/17 21:03; Admin Dose 1 TAB; Start 04/14/17 at 21:00 Magnesium Hydroxide (Milk Of Mag) 30 ml BID PRN PO CONSTIPATION; Start at 00:00 Lactulose (Enulose) 20 gm DAILY PRN PO CONSTIPATION; Start 04/14/17 at 00:00 Bisacodyl (Dulcolax Supp) 10 mg DAILY PRN [place] CONSTIPATION; Start 04/14/17 at 00:00 Assessment/Plan Additional Assessment/Plan Rehab- L lat temp lobe CVA; h.o. CVA x 2 Continue interdisc treatment plan DM Hyperlipidemia UTi RADHA ADAMS MD Apr 15, 2017 13:00
[2017-04-15 14:00] VITALS: BP 152/88; RESP 20
[2017-04-15] MEDS: ALPRAZOLAM 0.25 MG TAB PO PRN (16:04)
[2017-04-15] MEDS: ATORVASTATIN 40 MG TAB PO SCH (20:58)
[2017-04-15] MEDS: ZOLPIDEM 5 MG TAB PO PRN (20:58)
[2017-04-15] MEDS: SENNA TAB PO SCH (20:58)
[2017-04-15] MEDS: INSULIN GLARGINE [LANtus] 3 ML PEN SC SCH (21:04)
--- NOTE | 2017-04-15 21:54 | PN ---
Date/Time of Note Date/Time of Note DATE: 04/15/17 TIME: 21:54 Assessment/Plan Lines/Catheters IV [facility]ter Type (from [facility]): [place] [facility] Urinary Cath still in place: No Assessment/Plan Chief Complaint/Hosp Course 1. Recurrent stroke versus TIA. Continue patient on aspirin and Plavix. 2. Intermittent positional vertigo, resolved. 3. Hypertension. Continue metoprolol. 4. Diabetes mellitus with hemoglobin A1c 7.0. Continue Janumet and Jardiance. We will continue Lantus and add premeal NovoLog. 5. Hyperlipidemia. Continue statin. 6. Anxiety and depression. Continue alprazolam p.r.n. Continue physical and occupational therapy. 7. Escherichia coli urinary tract infection. Continue Levaquin. Further recommendations based on clinical course. Plan of care discussed with Dr. Smith. Problems: Exam/Review of Systems Vital Signs Vitals Vital Signs Date Time Temp Pulse Resp B/P Pulse Ox O2 Delivery O2 Flow Rate FiO2 04/15/17 14:00 98.5 84 20 152/88 97 04/14/17 08:00 Room Air Intake and Output 04/14/17 04/14/17 04/15/17 15:00 23:00 07:00 Intake Total 1200 ml 800 ml Output Total 800 ml 600 ml Balance 400 ml 200 ml Results Result Diagram: 04/14/17 0642 04/14/17 0642 Results 24 hrs Laboratory Tests Test 04/15/17 02:29 04/15/17 08:04 04/15/17 09:08 04/15/17 12:50 Bedside Glucose 197 187 271 H 151 Test 04/15/17 17:35 04/15/17 20:52 Bedside Glucose 196 198 Medications Medications Current Medications Levofloxacin (Levaquin) 500 mg DAILY@06 PO Last administered on 04/15/17t 06: 15; Admin Dose 500 MG; Start 04/14/17 at 06:00; Stop 04/18/17 at 06:01 Miscellaneous Information 1 ea NOTE XX ; Start 04/13/17 at 22:30 Glucose (Glutose) 15 gm Q15M PRN PO DECREASED GLUCOSE; Start 04/13/17 at 22:30 Glucose (Glutose) 22.5 gm Q15M PRN PO DECREASED GLUCOSE; Start 04/13/17 at 22: 30 Dextrose (D50w Syringe) 25 ml Q15M PRN IV DECREASED GLUCOSE; Start 04/13/17 at 22:30 Dextrose (D50w Syringe) 50 ml Q15M PRN IV DECREASED GLUCOSE; Start 04/13/17 at 22:30 Glucagon (Glucagen) 1 mg Q15M PRN IM DECREASED GLUCOSE; Start 04/13/17 at 22: 30 Glucose (Glutose) 15 gm Q15M PRN BUCCAL DECREASED GLUCOSE; Start 04/13/17 at 22:30 Zolpidem Tartrate (Ambien) 5 mg HS PRN PO INSOMNIA Last administered on 20:58; Admin Dose 5 MG; Start 04/13/17 at 22:30 Aspirin (Halfprin) 81 mg DAILY PO Last administered on 04/15/17 09:01; Admin Dose 81 MG; Start 04/14/17 at 09:00 Insulin Glargine (Lantus) 14 unit DAILY@20 SC Last administered on 04/15/17 21:04; Admin Dose 14 UNIT; Start 04/14/17 at 20:00 Diagnostic Test (Pha) (Accu-Chek) 1 ea 02 XX Last administered on 04/15/17 02 :42; Admin Dose 1 EA; Start 04/14/17 at 02:00 Acetaminophen (Tylenol Tab) 650 mg Q4H PRN PO PAIN AND OR ELEVATED TEMP Last administered on 04/15/17 16:04; Admin Dose 650 MG; Start 04/13/17 at 22:30 Alprazolam (Xanax) 0.25 mg BID PRN PO ANXIETY Last administered on 04/15/17 16:04; Admin Dose 0.25 MG; Start 04/13/17 at 22:30 Amlodipine Besylate (Norvasc) 5 mg DAILY PO Last administered on 04/15/17 09: 01; Admin Dose 5 MG; Start 04/14/17 at 09:00 Atorvastatin Calcium (Lipitor) 40 mg DAILY@21 PO Last administered on 20:58; Admin Dose 40 MG; Start 04/14/17 at 21:00 Clopidogrel Bisulfate (plaVIX) 75 mg DAILY PO Last administered on 04/15/17 09:01; Admin Dose 75 MG; Start 04/14/17 at 09:00 Docusate Sodium (Colace) 100 mg BID PO Last administered on 04/15/17 20:58; Admin Dose 100 MG; Start 04/14/17 at 09:00 Senna (Senokot) 1 tab HS PO Last administered on 04/15/17 20:58; Admin Dose 1 TAB; Start 04/14/17 at 21:00 Magnesium Hydroxide (Milk Of Mag) 30 ml BID PRN PO CONSTIPATION; Start at 00:00 Lactulose (Enulose) 20 gm DAILY PRN PO CONSTIPATION; Start 04/14/17 at 00:00 Bisacodyl (Dulcolax Supp) 10 mg DAILY PRN [place] CONSTIPATION; Start 04/14/17 at 00:00 DARWIN PEREZ Apr 15, 2017 21:54
[2017-04-15 22:16] VITALS: BP 135/74; RESP 18
[2017-04-16] MEDS: ACCUCHECK AT 2AM (Patients on SS coverage) XX SCH (02:34)
[2017-04-16 02:51] VITALS: BP 132/77; RESP 18
[2017-04-16] MEDS: LEVOFLOXACIN 500 MG TAB PO SCH (06:12)
[2017-04-16 07:40] VITALS: BP 134/76; RESP 18
[2017-04-16] MEDS: ASPIRIN (EC) 81 MG TAB PO SCH (08:35)
[2017-04-16] MEDS: AMLODIPINE 5 MG TAB PO SCH (08:35)
[2017-04-16] MEDS: DOCUSATE SODIUM 100 MG CAP PO SCH ×2 (08:35→20:48)
[2017-04-16] MEDS: CLOPIDOGREL 75 MG TAB PO SCH (08:35)
[2017-04-16] MEDS: Insulin NOVOLOG SS MILD Algorithm (SS with meals and bedtime) SC SCH ×4 (08:39→20:58)
[2017-04-16] MEDS: INSULIN ASPART [NOVOLOG] 3 ML PEN SC SCH ×3 (08:39→17:31)
--- NOTE | 2017-04-16 11:52 | CONS ---
Date/Time of Note Date/Time of Note DATE: 04/16/17 TIME: 11:51 Consult Date/Type/Reason Admit Date/Time Apr 13, 2017 at 09:15 Subjective Patient comfortable Objective Lungs clear abdomen soft Vital Signs Date Time Temp Pulse Resp B/P Pulse Ox O2 Delivery O2 Flow Rate FiO2 04/16/17 07:40 97.8 62 18 134/76 96 04/14/17 08:00 Room Air Intake and Output 04/15/17 04/15/17 04/16/17 15:00 23:00 07:00 Intake Total 1200 ml 750 ml Balance 1200 ml 750 ml Results/Medications Result Diagram: 04/14/17 0642 04/14/17 0642 Results 24 hrs Laboratory Tests Test 04/15/17 12:50 04/15/17 17:35 04/15/17 20:52 04/16/17 02:34 Bedside Glucose 151 196 198 227 H Test 04/16/17 08:03 Bedside Glucose 212 Medications Current Medications Levofloxacin (Levaquin) 500 mg DAILY@06 PO Last administered on 04/16/17 06: 12; Admin Dose 500 MG; Start 04/14/17 at 06:00; Stop 04/18/17 at 06:01 Miscellaneous Information 1 ea NOTE XX ; Start 04/13/17 at 22:30 Glucose (Glutose) 15 gm Q15M PRN PO DECREASED GLUCOSE; Start 04/13/17 at 22:30 Glucose (Glutose) 22.5 gm Q15M PRN PO DECREASED GLUCOSE; Start 04/13/17 at 22: 30 Dextrose (D50w Syringe) 25 ml Q15M PRN IV DECREASED GLUCOSE; Start 04/13/17 at 22:30 Dextrose (D50w Syringe) 50 ml Q15M PRN IV DECREASED GLUCOSE; Start 04/13/17 at 22:30 Glucagon (Glucagen) 1 mg Q15M PRN IM DECREASED GLUCOSE; Start 04/13/17 at 22: 30 Glucose (Glutose) 15 gm Q15M PRN BUCCAL DECREASED GLUCOSE; Start 04/13/17 at 22:30 Zolpidem Tartrate (Ambien) 5 mg HS PRN PO INSOMNIA Last administered on 20:58; Admin Dose 5 MG; Start 04/13/17 at 22:30 Aspirin (Halfprin) 81 mg DAILY PO Last administered on 04/16/17 08:35; Admin Dose 81 MG; Start 04/14/17 at 09:00 Insulin Glargine (Lantus) 14 unit DAILY@20 SC Last administered on 04/15/17 21:04; Admin Dose 14 UNIT; Start 04/14/17 at 20:00 Diagnostic Test (Pha) (Accu-Chek) 1 ea 02 XX Last administered on 04/16/17 02 :34; Admin Dose 1 EA; Start 04/14/17 at 02:00 Acetaminophen (Tylenol Tab) 650 mg Q4H PRN PO PAIN AND OR ELEVATED TEMP Last administered on 04/15/17 16:04; Admin Dose 650 MG; Start 04/13/17 at 22:30 Alprazolam (Xanax) 0.25 mg BID PRN PO ANXIETY Last administered on 04/15/17 16:04; Admin Dose 0.25 MG; Start 04/13/17 at 22:30 Amlodipine Besylate (Norvasc) 5 mg DAILY PO Last administered on 04/16/17 08: 35; Admin Dose 5 MG; Start 04/14/17 at 09:00 Atorvastatin Calcium (Lipitor) 40 mg DAILY@21 PO Last administered on 20:58; Admin Dose 40 MG; Start 04/14/17 at 21:00 Clopidogrel Bisulfate (plaVIX) 75 mg DAILY PO Last administered on 04/16/17 08:35; Admin Dose 75 MG; Start 04/14/17 at 09:00 Docusate Sodium (Colace) 100 mg BID PO Last administered on 04/16/17 08:35; Admin Dose 100 MG; Start 04/14/17 at 09:00 Senna (Senokot) 1 tab HS PO Last administered on 04/15/17 20:58; Admin Dose 1 TAB; Start 04/14/17 at 21:00 Magnesium Hydroxide (Milk Of Mag) 30 ml BID PRN PO CONSTIPATION; Start at 00:00 Lactulose (Enulose) 20 gm DAILY PRN PO CONSTIPATION; Start 04/14/17 at 00:00 Bisacodyl (Dulcolax Supp) 10 mg DAILY PRN [place] CONSTIPATION; Start 04/14/17 at 00:00 Assessment/Plan Additional Assessment/Plan Rehab- L lat temp lobe CVA; h.o. CVA x 2 Continue current rehabilitative treatment plan DM Hyperlipidemia UTi RADHA ADAMS MD Apr 16, 2017 11:52
[2017-04-16 14:06] VITALS: BP 135/71; RESP 16
[2017-04-16] MEDS: ACETAMINOPHEN 325 MG TAB PO PRN (17:27)
--- NOTE | 2017-04-16 19:38 | PN ---
Date/Time of Note Date/Time of Note DATE: 04/16/17 TIME: 19:34 Assessment/Plan VTE Prophylaxis VTE Prophylaxis Intervention: SCD's Lines/Catheters IV Catheter Type (from [facility]): [facility] Urinary Cath still in place: No Assessment/Plan Chief Complaint/Hosp Course Patient's continues to work with physical therapy, blood sugar above 200, will resume Janumet, continue Lantus and pre-meal NovoLog Problems: Assessment/Plan 1. Recurrent stroke versus TIA. Continue patient on aspirin and Plavix. 2. Intermittent positional vertigo, continue meclizine as needed for dizziness 3. Hypertension. Continue metoprolol. 4. Diabetes mellitus with hemoglobin A1c 7.0. Continue Janumet and Jardiance. Continue Lantus and add premeal NovoLog. 5. Hyperlipidemia. Continue statin. 6. Anxiety and depression. Continue alprazolam p.r.n. Continue physical and occupational therapy. 7. Escherichia coli urinary tract infection. Continue Levaquin. Further recommendations based on clinical course. Plan of care discussed with Dr. Smith. Exam/Review of Systems Vital Signs Vitals Vital Signs Date Time Temp Pulse Resp B/P Pulse Ox O2 Delivery O2 Flow Rate FiO2 04/16/17 14:06 99.1 82 16 135/71 96 04/14/17 08:00 Room Air Intake and Output 04/15/17 04/15/17 04/16/17 15:00 23:00 07:00 Intake Total 1200 ml 750 ml Balance 1200 ml 750 ml Exam Constitutional: alert, oriented Head: normocephalic Neck: supple Respiratory: normal air movement Cardiovascular: nl pulses Gastrointestinal: non-tender, soft Musculoskeletal: other (Right-sided weakness) Results Result Diagram: 04/14/17 0642 04/14/17 0642 Results 24 hrs Laboratory Tests Test 04/15/17 20:52 04/16/17 02:34 04/16/17 08:03 04/16/17 12:27 Bedside Glucose 198 227 H 212 271 H Test 04/16/17 17:16 Bedside Glucose 206 Medications Medications Current Medications Levofloxacin (Levaquin) 500 mg DAILY@06 PO Last administered on 04/16/17t 06: 12; Admin Dose 500 MG; Start 04/14/17 at 06:00; Stop 04/18/17 at 06:01 Miscellaneous Information 1 ea NOTE XX ; Start 04/13/17 at 22:30 Glucose (Glutose) 15 gm Q15M PRN PO DECREASED GLUCOSE; Start 04/13/17 at 22:30 Glucose (Glutose) 22.5 gm Q15M PRN PO DECREASED GLUCOSE; Start 04/13/17 at 22: 30 Dextrose (D50w Syringe) 25 ml Q15M PRN IV DECREASED GLUCOSE; Start 04/13/17 at 22:30 Dextrose (D50w Syringe) 50 ml Q15M PRN IV DECREASED GLUCOSE; Start 04/13/17 at 22:30 Glucagon (Glucagen) 1 mg Q15M PRN IM DECREASED GLUCOSE; Start 04/13/17 at 22: 30 Glucose (Glutose) 15 gm Q15M PRN BUCCAL DECREASED GLUCOSE; Start 04/13/17 at 22:30 Zolpidem Tartrate (Ambien) 5 mg HS PRN PO INSOMNIA Last administered on 20:58; Admin Dose 5 MG; Start 04/13/17 at 22:30 Aspirin (Halfprin) 81 mg DAILY PO Last administered on 04/16/17 08:35; Admin Dose 81 MG; Start 04/14/17 at 09:00 Insulin Glargine (Lantus) 14 unit DAILY@20 SC Last administered on 04/15/17 21:04; Admin Dose 14 UNIT; Start 04/14/17 at 20:00 Diagnostic Test (Pha) (Accu-Chek) 1 ea 02 XX Last administered on 04/16/17 02 :34; Admin Dose 1 EA; Start 04/14/17 at 02:00 Acetaminophen (Tylenol Tab) 650 mg Q4H PRN PO PAIN AND OR ELEVATED TEMP Last administered on 04/16/17 17:27; Admin Dose 650 MG; Start 04/13/17 at 22:30 Alprazolam (Xanax) 0.25 mg BID PRN PO ANXIETY Last administered on 04/15/17 16:04; Admin Dose 0.25 MG; Start 04/13/17 at 22:30 Amlodipine Besylate (Norvasc) 5 mg DAILY PO Last administered on 04/16/17 08: 35; Admin Dose 5 MG; Start 04/14/17 at 09:00 Atorvastatin Calcium (Lipitor) 40 mg DAILY@21 PO Last administered on 20:58; Admin Dose 40 MG; Start 04/14/17 at 21:00 Clopidogrel Bisulfate (plaVIX) 75 mg DAILY PO Last administered on 04/16/17 08:35; Admin Dose 75 MG; Start 04/14/17 at 09:00 Docusate Sodium (Colace) 100 mg BID PO Last administered on 04/16/17 08:35; Admin Dose 100 MG; Start 04/14/17 at 09:00 Senna (Senokot) 1 tab HS PO Last administered on 04/15/17 20:58; Admin Dose 1 TAB; Start 04/14/17 at 21:00 Magnesium Hydroxide (Milk Of Mag) 30 ml BID PRN PO CONSTIPATION; Start at 00:00 Lactulose (Enulose) 20 gm DAILY PRN PO CONSTIPATION; Start 04/14/17 at 00:00 Bisacodyl (Dulcolax Supp) 10 mg DAILY PRN [place] CONSTIPATION; Start 04/14/17 at 00:00 Miscellaneous Information 1 each BID PO ; Start 04/16/17 at 21:00; Status KAYLA ELAINE Apr 16, 2017 19:37
[2017-04-16 20:00] VITALS: BP 134/76; RESP 18
[2017-04-16] MEDS ORDERED: MECLIZINE 25 MG TAB PO PRN (20:00)
[2017-04-16] MEDS: ATORVASTATIN 40 MG TAB PO SCH (20:48)
[2017-04-16] MEDS: SENNA TAB PO SCH (20:48)
[2017-04-16] MEDS: ZOLPIDEM 5 MG TAB PO PRN (20:51)
[2017-04-16] MEDS: INSULIN GLARGINE [LANtus] 3 ML PEN SC SCH (20:57)
[2017-04-17 02:00] VITALS: BP 132/73; RESP 18
[2017-04-17] MEDS: ACCUCHECK AT 2AM (Patients on SS coverage) XX SCH (02:12)
[2017-04-17] MEDS: LEVOFLOXACIN 500 MG TAB PO SCH (06:45)
[2017-04-17 07:30] VITALS: BP 131/85; RESP 18
[2017-04-17] MEDS: EMPAGLIFLOZIN 10 MG TABLET PO SCH (08:06)
[2017-04-17] MEDS: ASPIRIN (EC) 81 MG TAB PO SCH (08:07)
[2017-04-17] MEDS: DOCUSATE SODIUM 100 MG CAP PO SCH ×2 (08:07→20:51)
[2017-04-17] MEDS: LINAGLIPTIN 5 MG TABLET PO SCH (08:07)
[2017-04-17] MEDS: AMLODIPINE 5 MG TAB PO SCH (08:07)
[2017-04-17] MEDS: CLOPIDOGREL 75 MG TAB PO SCH (08:07)
[2017-04-17] MEDS: metFORMIN 500 MG TAB PO SCH ×2 (08:08→17:37)
[2017-04-17] MEDS: Insulin NOVOLOG SS MILD Algorithm (SS with meals and bedtime) SC SCH ×4 (08:18→20:51)
[2017-04-17] MEDS: INSULIN ASPART [NOVOLOG] 3 ML PEN SC SCH ×3 (08:22→17:43)
--- NOTE | 2017-04-17 10:59 | CONS ---
Date/Time of Note Date/Time of Note DATE: 04/17/17 TIME: 10:58 Consult Date/Type/Reason Admit Date/Time Apr 13, 2017 at 09:15 Subjective Improving speech Objective pulm-cta min 50 feet Vital Signs Date Time Temp Pulse Resp B/P Pulse Ox O2 Delivery O2 Flow Rate FiO2 04/17/17 02:00 98.3 80 18 132/73 94 04/14/17 08:00 Room Air Intake and Output 04/16/17 04/16/17 04/17/17 15:00 23:00 07:00 Intake Total 600 ml Balance 600 ml Results/Medications Result Diagram: 04/14/17 0642 04/14/17 0642 Results 24 hrs Laboratory Tests Test 04/16/17 12:27 04/16/17 17:16 04/16/17 20:46 04/17/17 01:48 Bedside Glucose 271 H 206 188 151 Test 04/17/17 07:57 Bedside Glucose 158 Medications Current Medications Levofloxacin (Levaquin) 500 mg DAILY@06 PO Last administered on 04/17/17 06: 45; Admin Dose 500 MG; Start 04/14/17 at 06:00; Stop 04/18/17 at 06:01 Miscellaneous Information 1 ea NOTE XX ; Start 04/13/17 at 22:30 Glucose (Glutose) 15 gm Q15M PRN PO DECREASED GLUCOSE; Start 04/13/17 at 22:30 Glucose (Glutose) 22.5 gm Q15M PRN PO DECREASED GLUCOSE; Start 04/13/17 at 22: 30 Dextrose (D50w Syringe) 25 ml Q15M PRN IV DECREASED GLUCOSE; Start 04/13/17 at 22:30 Dextrose (D50w Syringe) 50 ml Q15M PRN IV DECREASED GLUCOSE; Start 04/13/17 at 22:30 Glucagon (Glucagen) 1 mg Q15M PRN IM DECREASED GLUCOSE; Start 04/13/17 at 22: 30 Glucose (Glutose) 15 gm Q15M PRN BUCCAL DECREASED GLUCOSE; Start 04/13/17 at 22:30 Zolpidem Tartrate (Ambien) 5 mg HS PRN PO INSOMNIA Last administered on 20:51; Admin Dose 5 MG; Start 04/13/17 at 22:30 Aspirin (Halfprin) 81 mg DAILY PO Last administered on 04/17/17 08:07; Admin Dose 81 MG; Start 04/14/17 at 09:00 Insulin Glargine (Lantus) 14 unit DAILY@20 SC Last administered on 04/16/17 20:57; Admin Dose 14 UNIT; Start 04/14/17 at 20:00 Diagnostic Test (Pha) (Accu-Chek) 1 ea 02 XX Last administered on 04/17/17 02 :12; Admin Dose 1 EA; Start 04/14/17 at 02:00 Acetaminophen (Tylenol Tab) 650 mg Q4H PRN PO PAIN AND OR ELEVATED TEMP Last administered on 04/16/17 17:27; Admin Dose 650 MG; Start 04/13/17 at 22:30 Alprazolam (Xanax) 0.25 mg BID PRN PO ANXIETY Last administered on 04/15/17 16:04; Admin Dose 0.25 MG; Start 04/13/17 at 22:30 Amlodipine Besylate (Norvasc) 5 mg DAILY PO Last administered on 04/17/17 08: 07; Admin Dose 5 MG; Start 04/14/17 at 09:00 Atorvastatin Calcium (Lipitor) 40 mg DAILY@21 PO Last administered on 20:48; Admin Dose 40 MG; Start 04/14/17 at 21:00 Clopidogrel Bisulfate (plaVIX) 75 mg DAILY PO Last administered on 04/17/17 08:07; Admin Dose 75 MG; Start 04/14/17 at 09:00 Docusate Sodium (Colace) 100 mg BID PO Last administered on 04/17/17 08:07; Admin Dose 100 MG; Start 04/14/17 at 09:00 Senna (Senokot) 1 tab HS PO Last administered on 04/16/17 20:48; Admin Dose 1 TAB; Start 04/14/17 at 21:00 Magnesium Hydroxide (Milk Of Mag) 30 ml BID PRN PO CONSTIPATION; Start at 00:00 Lactulose (Enulose) 20 gm DAILY PRN PO CONSTIPATION; Start 04/14/17 at 00:00 Bisacodyl (Dulcolax Supp) 10 mg DAILY PRN [place] CONSTIPATION; Start 04/14/17 at 00:00 Empaglifozin (Jardiance) 10 mg DAILY PO Last administered on 04/17/17 08:06; Admin Dose 10 MG; Start 04/17/17 at 09:00 Meclizine HCl (Antivert) 25 mg TID PRN PO dizziness; Start 04/16/17 at 20:00 Linagliptin (Tradjenta) 5 mg DAILY PO Last administered on 04/17/17 08:07; Admin Dose 5 MG; Start 04/17/17 at 09:00 Assessment/Plan Additional Assessment/Plan Rehab- L lat temp lobe CVA; h.o. CVA x 2 Continue interdisciplinary rehab DM Hyperlipidemia UTi RADHA ADAMS MD Apr 17, 2017 10:59
[2017-04-17] MEDS: ACETAMINOPHEN 325 MG TAB PO PRN ×2 (12:18→17:36)
[2017-04-17 14:00] VITALS: BP 132/85; RESP 20
--- NOTE | 2017-04-17 18:04 | PN ---
Date/Time of Note Date/Time of Note DATE: 04/17/17 TIME: 18:02 Assessment/Plan VTE Prophylaxis VTE Prophylaxis Intervention: other Lines/Catheters IV Catheter Type (from Nrs): [facility] Urinary Cath still in place: No Assessment/Plan Assessment/Plan 1. Right external ear pain- no redness, no swelling, no drainage noted, Otoscope to be obtained. per patient pain is mild and tolerable, afebrile, denies any dysphagia. symmetrical bilateral lymph nodes. -cont to monitor 1. Recurrent stroke versus TIA. Continue patient on aspirin and Plavix. 2. Intermittent positional vertigo, continue meclizine as needed for dizziness 3. Hypertension. Continue metoprolol. 4. Diabetes mellitus with hemoglobin A1c 7.0. Continue Janumet and Jardiance. Continue Lantus and add premeal NovoLog. 5. Hyperlipidemia. Continue statin. 6. Anxiety and depression. Continue alprazolam p.r.n. Continue physical and occupational therapy. 7. Escherichia coli urinary tract infection. Continue Levaquin. Further recommendations based on clinical course. Plan of care discussed with Dr. Smith. Subjective 24 Hr Interval Summary Constitutional: improved ENT: pain (right ear pain ouitside - otoscope to be attained, mild, tolerable) Respiratory: no complaints Cardiovascular: no complaints Gastrointestinal: no complaints Exam/Review of Systems Vital Signs Vitals Vital Signs Date Time Temp Pulse Resp B/P Pulse Ox O2 Delivery O2 Flow Rate FiO2 04/17/17 14:00 97.6 87 20 132/85 93 04/14/17 08:00 Room Air Intake and Output 04/16/17 04/16/17 04/17/17 15:00 23:00 07:00 Intake Total 600 ml Balance 600 ml Exam Constitutional: alert, oriented, well developed Respiratory: clear to auscultation Cardiovascular: nl pulses, regular rate and rhythm Gastrointestinal: non-tender, soft Musculoskeletal: nl extremities to inspection Extremities: normal pulses Neurological: nl mental status Results Result Diagram: 04/14/17 0642 04/14/17 0642 Results 24 hrs Laboratory Tests Test 04/16/17 20:46 04/17/17 01:48 04/17/17 07:57 04/17/17 12:16 Bedside Glucose 188 151 158 99 Test 04/17/17 17:32 Bedside Glucose 116 Medications Medications Current Medications Levofloxacin (Levaquin) 500 mg DAILY@06 PO Last administered on 04/17/17 06: 45; Admin Dose 500 MG; Start 04/14/17 at 06:00; Stop 04/18/17 at 06:01 Miscellaneous Information 1 ea NOTE XX ; Start 04/13/17 at 22:30 Glucose (Glutose) 15 gm Q15M PRN PO DECREASED GLUCOSE; Start 04/13/17 at 22:30 Glucose (Glutose) 22.5 gm Q15M PRN PO DECREASED GLUCOSE; Start 04/13/17 at 22: 30 Dextrose (D50w Syringe) 25 ml Q15M PRN IV DECREASED GLUCOSE; Start 04/13/17 at 22:30 Dextrose (D50w Syringe) 50 ml Q15M PRN IV DECREASED GLUCOSE; Start 04/13/17 at 22:30 Glucagon (Glucagen) 1 mg Q15M PRN IM DECREASED GLUCOSE; Start 04/13/17 at 22: 30 Glucose (Glutose) 15 gm Q15M PRN BUCCAL DECREASED GLUCOSE; Start 04/13/17 at 22:30 Zolpidem Tartrate (Ambien) 5 mg HS PRN PO INSOMNIA Last administered on 20:51; Admin Dose 5 MG; Start 04/13/17 at 22:30 Aspirin (Halfprin) 81 mg DAILY PO Last administered on 04/17/17 08:07; Admin Dose 81 MG; Start 04/14/17 at 09:00 Insulin Glargine (Lantus) 14 unit DAILY@20 SC Last administered on 04/16/17 20:57; Admin Dose 14 UNIT; Start 04/14/17 at 20:00 Diagnostic Test (Pha) (Accu-Chek) 1 ea 02 XX Last administered on 04/17/17 02 :12; Admin Dose 1 EA; Start 04/14/17 at 02:00 Acetaminophen (Tylenol Tab) 650 mg Q4H PRN PO PAIN AND OR ELEVATED TEMP Last administered on 04/17/17 17:36; Admin Dose 650 MG; Start 04/13/17 at 22:30 Alprazolam (Xanax) 0.25 mg BID PRN PO ANXIETY Last administered on 04/15/17 16:04; Admin Dose 0.25 MG; Start 04/13/17 at 22:30 Amlodipine Besylate (Norvasc) 5 mg DAILY PO Last administered on 04/17/17 08: 07; Admin Dose 5 MG; Start 04/14/17 at 09:00 Atorvastatin Calcium (Lipitor) 40 mg DAILY@21 PO Last administered on 20:48; Admin Dose 40 MG; Start 04/14/17 at 21:00 Clopidogrel Bisulfate (plaVIX) 75 mg DAILY PO Last administered on 04/17/17 08:07; Admin Dose 75 MG; Start 04/14/17 at 09:00 Docusate Sodium (Colace) 100 mg BID PO Last administered on 04/17/17 08:07; Admin Dose 100 MG; Start 04/14/17 at 09:00 Senna (Senokot) 1 tab HS PO Last administered on 04/16/17 20:48; Admin Dose 1 TAB; Start 04/14/17 at 21:00 Magnesium Hydroxide (Milk Of Mag) 30 ml BID PRN PO CONSTIPATION; Start at 00:00 Lactulose (Enulose) 20 gm DAILY PRN PO CONSTIPATION; Start 04/14/17 at 00:00 Bisacodyl (Dulcolax Supp) 10 mg DAILY PRN [place] CONSTIPATION; Start 04/14/17 at 00:00 Empaglifozin (Jardiance) 10 mg DAILY PO Last administered on 04/17/17 08:06; Admin Dose 10 MG; Start 04/17/17 at 09:00 Meclizine HCl (Antivert) 25 mg TID PRN PO dizziness; Start 04/16/17 at 20:00 Linagliptin (Tradjenta) 5 mg DAILY PO Last administered on 04/17/17 08:07; Admin Dose 5 MG; Start 04/17/17 at 09:00 DARWIN PEREZ Apr 17, 2017 18:04
[2017-04-17 20:19] VITALS: BP 126/76; RESP 18
[2017-04-17] MEDS: ATORVASTATIN 40 MG TAB PO SCH (20:51)
[2017-04-17] MEDS: SENNA TAB PO SCH (20:51)
[2017-04-17] MEDS: INSULIN GLARGINE [LANtus] 3 ML PEN SC SCH (20:52)
[2017-04-17] MEDS: ZOLPIDEM 5 MG TAB PO PRN (20:57)
[2017-04-18 01:50] VITALS: BP 138/82; RESP 18
[2017-04-18] MEDS: ACCUCHECK AT 2AM (Patients on SS coverage) XX SCH (02:00)
[2017-04-18] MEDS: LEVOFLOXACIN 500 MG TAB PO SCH (06:31)
[2017-04-18 07:00] VITALS: BP_SYST 126; BP_SYST 176; BP_DIAS 73; BP_DIAS 81; RESP 18
[2017-04-18] MEDS: Insulin NOVOLOG SS MILD Algorithm (SS with meals and bedtime) SC SCH ×4 (07:05→20:17)
[2017-04-18] MEDS: INSULIN ASPART [NOVOLOG] 3 ML PEN SC SCH ×3 (07:59→17:37)
[2017-04-18 08:00] VITALS: BP 126/81; PULSE 83; RESP 18
[2017-04-18] MEDS: metFORMIN 500 MG TAB PO SCH ×2 (08:00→17:41)
[2017-04-18] MEDS: CLOPIDOGREL 75 MG TAB PO SCH (08:28)
[2017-04-18] MEDS: ASPIRIN (EC) 81 MG TAB PO SCH (08:28)
[2017-04-18] MEDS: DOCUSATE SODIUM 100 MG CAP PO SCH ×2 (08:28→20:15)
[2017-04-18] MEDS: AMLODIPINE 5 MG TAB PO SCH (08:28)
[2017-04-18] MEDS: EMPAGLIFLOZIN 10 MG TABLET PO SCH (08:28)
[2017-04-18] MEDS: LINAGLIPTIN 5 MG TABLET PO SCH (08:28)
[2017-04-18] MEDS: ALPRAZOLAM 0.25 MG TAB PO PRN ×2 (14:59→20:23)
--- NOTE | 2017-04-18 19:01 | PN ---
Date/Time of Note Date/Time of Note DATE: 04/18/17 TIME: 18:59 Assessment/Plan VTE Prophylaxis VTE Prophylaxis Intervention: other Lines/Catheters IV Catheter Type (from Nrs): [facility] Urinary Cath still in place: No Assessment/Plan Assessment/Plan 1. Right external ear pain- resolved - no redness, no swelling, no drainage noted, Otoscope to be obtained. per patient pain is mild and tolerable, afebrile, denies any dysphagia. symmetrical bilateral lymph nodes. -cont to monitor 1. Recurrent stroke versus TIA. Continue patient on aspirin and Plavix. 2. Intermittent positional vertigo, continue meclizine as needed for dizziness 3. Hypertension. Continue metoprolol. 4. Diabetes mellitus with hemoglobin A1c 7.0. Continue Janumet and Jardiance. Continue Lantus and add premeal NovoLog. 5. Hyperlipidemia. Continue statin. 6. Anxiety and depression. Continue alprazolam p.r.n. Continue physical and occupational therapy. 7. Escherichia coli urinary tract infection. Continue Levaquin. Further recommendations based on clinical course. Plan of care discussed with Dr. Smith. Subjective 24 Hr Interval Summary Free Text/Dictation feels better, denies any ear pain. no new issues reported by staff. Respiratory: no complaints Cardiovascular: no complaints Gastrointestinal: no complaints Genitourinary: no complaints Musculoskeletal: no complaints Exam/Review of Systems Vital Signs Vitals Vital Signs Date Time Temp Pulse Resp B/P Pulse Ox O2 Delivery O2 Flow Rate FiO2 04/18/17 08:00 98.3 83 18 126/81 Room Air 04/18/17 07:00 98 Intake and Output 04/17/17 04/17/17 04/18/17 15:00 23:00 07:00 Intake Total 620 ml Output Total 200 ml Balance 620 ml -200 ml Exam Constitutional: alert Respiratory: clear to auscultation, normal air movement Cardiovascular: nl pulses Gastrointestinal: non-tender, soft Musculoskeletal: nl extremities to inspection Extremities: normal pulses Neurological: nl mental status, nl speech Results Result Diagram: 04/14/17 0642 04/14/17 0642 Results 24 hrs Laboratory Tests Test 04/17/17 20:50 04/18/17 07:58 04/18/17 12:10 04/18/17 17:34 Bedside Glucose 154 128 126 197 Medications Medications Current Medications Miscellaneous Information 1 ea NOTE XX ; Start 04/13/17 at 22:30 Glucose (Glutose) 15 gm Q15M PRN PO DECREASED GLUCOSE; Start 04/13/17 at 22:30 Glucose (Glutose) 22.5 gm Q15M PRN PO DECREASED GLUCOSE; Start 04/13/17 at 22: 30 Dextrose (D50w Syringe) 25 ml Q15M PRN IV DECREASED GLUCOSE; Start 04/13/17 at 22:30 Dextrose (D50w Syringe) 50 ml Q15M PRN IV DECREASED GLUCOSE; Start 04/13/17 at 22:30 Glucagon (Glucagen) 1 mg Q15M PRN IM DECREASED GLUCOSE; Start 04/13/17 at 22: 30 Glucose (Glutose) 15 gm Q15M PRN BUCCAL DECREASED GLUCOSE; Start 04/13/17 at 22:30 Zolpidem Tartrate (Ambien) 5 mg HS PRN PO INSOMNIA Last administered on 20:57; Admin Dose 5 MG; Start 04/13/17 at 22:30 Aspirin (Halfprin) 81 mg DAILY PO Last administered on 04/18/17 08:28; Admin Dose 81 MG; Start 04/14/17 at 09:00 Insulin Glargine (Lantus) 14 unit DAILY@20 SC Last administered on 04/17/17 20:52; Admin Dose 14 UNIT; Start 04/14/17 at 20:00 Diagnostic Test (Pha) (Accu-Chek) 1 ea 02 XX Last administered on 04/17/17 02 :12; Admin Dose 1 EA; Start 04/14/17 at 02:00 Acetaminophen (Tylenol Tab) 650 mg Q4H PRN PO PAIN AND OR ELEVATED TEMP Last administered on 04/17/17 17:36; Admin Dose 650 MG; Start 04/13/17 at 22:30 Alprazolam (Xanax) 0.25 mg BID PRN PO ANXIETY Last administered on 04/18/17 14:59; Admin Dose 0.25 MG; Start 04/13/17 at 22:30 Amlodipine Besylate (Norvasc) 5 mg DAILY PO Last administered on 04/18/17 08: 28; Admin Dose 5 MG; Start 04/14/17 at 09:00 Atorvastatin Calcium (Lipitor) 40 mg DAILY@21 PO Last administered on 20:51; Admin Dose 40 MG; Start 04/14/17 at 21:00 Clopidogrel Bisulfate (plaVIX) 75 mg DAILY PO Last administered on 04/18/17 08:28; Admin Dose 75 MG; Start 04/14/17 at 09:00 Docusate Sodium (Colace) 100 mg BID PO Last administered on 04/18/17 08:28; Admin Dose 100 MG; Start 04/14/17 at 09:00 Senna (Senokot) 1 tab HS PO Last administered on 04/17/17 20:51; Admin Dose 1 TAB; Start 04/14/17 at 21:00 Magnesium Hydroxide (Milk Of Mag) 30 ml BID PRN PO CONSTIPATION; Start at 00:00 Lactulose (Enulose) 20 gm DAILY PRN PO CONSTIPATION; Start 04/14/17 at 00:00 Bisacodyl (Dulcolax Supp) 10 mg DAILY PRN [place] CONSTIPATION; Start 04/14/17 at 00:00 Empaglifozin (Jardiance) 10 mg DAILY PO Last administered on 04/18/17 08:28; Admin Dose 10 MG; Start 04/17/17 at 09:00 Meclizine HCl (Antivert) 25 mg TID PRN PO dizziness; Start 04/16/17 at 20:00 Linagliptin (Tradjenta) 5 mg DAILY PO Last administered on 04/18/17 08:28; Admin Dose 5 MG; Start 04/17/17 at 09:00 DARWIN PEREZ Apr 18, 2017 19:01
[2017-04-18 20:00] VITALS: BP 155/79; RESP 18
[2017-04-18] MEDS: ACETAMINOPHEN 325 MG TAB PO PRN (20:14)
[2017-04-18] MEDS: SENNA TAB PO SCH (20:15)
[2017-04-18] MEDS: ATORVASTATIN 40 MG TAB PO SCH (20:15)
[2017-04-18] MEDS: INSULIN GLARGINE [LANtus] 3 ML PEN SC SCH (20:20)
[2017-04-19 02:00] VITALS: BP 114/66; RESP 18
[2017-04-19] MEDS: ACCUCHECK AT 2AM (Patients on SS coverage) XX SCH (02:00)
[2017-04-19] MEDS: ACETAMINOPHEN 325 MG TAB PO PRN (07:06)
[2017-04-19 07:30] VITALS: BP 125/84; RESP 18
[2017-04-19] MEDS: Insulin NOVOLOG SS MILD Algorithm (SS with meals and bedtime) SC SCH ×3 (08:50→18:23)
[2017-04-19] MEDS: LINAGLIPTIN 5 MG TABLET PO SCH (08:51)
[2017-04-19] MEDS: INSULIN ASPART [NOVOLOG] 3 ML PEN SC SCH ×3 (08:51→18:24)
[2017-04-19] MEDS: EMPAGLIFLOZIN 10 MG TABLET PO SCH (08:53)
[2017-04-19] MEDS: AMLODIPINE 5 MG TAB PO SCH (08:53)
[2017-04-19] MEDS: DOCUSATE SODIUM 100 MG CAP PO SCH (08:53)
[2017-04-19] MEDS: CLOPIDOGREL 75 MG TAB PO SCH (08:53)
[2017-04-19] MEDS: ASPIRIN (EC) 81 MG TAB PO SCH (08:54)
[2017-04-19] MEDS: metFORMIN 500 MG TAB PO SCH ×2 (08:54→18:24)
[2017-04-19] MEDS ORDERED: HYDROCODONE/APAP (5/325) TAB PO PRN (11:00)
--- NOTE | 2017-04-19 12:29 | CONS ---
Date/Time of Note Date/Time of Note DATE: 04/19/17 TIME: 12:29 Consult Date/Type/Reason Admit Date/Time Apr 13, 2017 at 09:15 Objective Vital Signs Date Time Temp Pulse Resp B/P Pulse Ox O2 Delivery O2 Flow Rate FiO2 04/19/17 07:30 98.0 68 18 125/84 96 04/18/17 08:00 Room Air Intake and Output 04/18/17 04/18/17 04/19/17 15:00 23:00 07:00 Intake Total 1920 ml 600 ml Output Total 800 ml 400 ml Balance 1120 ml 200 ml INTERDISCIPLINARY TEAM CONFERENCE BOWEL- Cont BLADDER-Cont SKIN- intact OT- DRESSING-sba BATHING-sba TOILETING-sba PT- BED MOBILITY-IA TRANSFERS-IA AMBULATION-IA 150 feet SPEECH- COGNITION-sba DYPHAGIA-mech soft A/P- Interdisciplinary team conference held today. Please see interdisciplinary sheet. DC TODAY WITH FAMILY with post discharge follow up of physical therapy, occupational therapy. Results/Medications Results 24 hrs Laboratory Tests Test 04/18/17 17:34 04/18/17 20:17 04/19/17 07:57 04/19/17 08:47 Bedside Glucose 197 132 125 184 Test 04/19/17 12:00 Bedside Glucose 94 Medications Current Medications Miscellaneous Information 1 ea NOTE XX ; Start 04/13/17 at 22:30 Glucose (Glutose) 15 gm Q15M PRN PO DECREASED GLUCOSE; Start 04/13/17 at 22:30 Glucose (Glutose) 22.5 gm Q15M PRN PO DECREASED GLUCOSE; Start 04/13/17 at 22: 30 Dextrose (D50w Syringe) 25 ml Q15M PRN IV DECREASED GLUCOSE; Start 04/13/17 at 22:30 Dextrose (D50w Syringe) 50 ml Q15M PRN IV DECREASED GLUCOSE; Start 04/13/17 at 22:30 Glucagon (Glucagen) 1 mg Q15M PRN IM DECREASED GLUCOSE; Start 04/13/17 at 22: 30 Glucose (Glutose) 15 gm Q15M PRN BUCCAL DECREASED GLUCOSE; Start 04/13/17 at 22:30 Zolpidem Tartrate (Ambien) 5 mg HS PRN PO INSOMNIA Last administered on t 20:57; Admin Dose 5 MG; Start 04/13/17 at 22:30 Aspirin (Halfprin) 81 mg DAILY PO Last administered on 04/19/17 08:54; Admin Dose 81 MG; Start 04/14/17 at 09:00 Insulin Glargine (Lantus) 14 unit DAILY@20 SC Last administered on 04/18/17 20:20; Admin Dose 14 UNIT; Start 04/14/17 at 20:00 Diagnostic Test (Pha) (Accu-Chek) 1 ea 02 XX Last administered on 04/17/17 02 :12; Admin Dose 1 EA; Start 04/14/17 at 02:00 Acetaminophen (Tylenol Tab) 650 mg Q4H PRN PO PAIN AND OR ELEVATED TEMP Last administered on 04/19/17 07:06; Admin Dose 650 MG; Start 04/13/17 at 22:30 Alprazolam (Xanax) 0.25 mg BID PRN PO ANXIETY Last administered on 04/18/17 20:23; Admin Dose 0.25 MG; Start 04/13/17 at 22:30 Amlodipine Besylate (Norvasc) 5 mg DAILY PO Last administered on 04/19/17 08: 53; Admin Dose 5 MG; Start 04/14/17 at 09:00 Atorvastatin Calcium (Lipitor) 40 mg DAILY@21 PO Last administered on 20:15; Admin Dose 40 MG; Start 04/14/17 at 21:00 Clopidogrel Bisulfate (plaVIX) 75 mg DAILY PO Last administered on 04/19/17 08:53; Admin Dose 75 MG; Start 04/14/17 at 09:00 Docusate Sodium (Colace) 100 mg BID PO Last administered on 04/19/17 08:53; Admin Dose 100 MG; Start 04/14/17 at 09:00 Senna (Senokot) 1 tab HS PO Last administered on 04/18/17 20:15; Admin Dose 1 TAB; Start 04/14/17 at 21:00 Magnesium Hydroxide (Milk Of Mag) 30 ml BID PRN PO CONSTIPATION; Start at 00:00 Lactulose (Enulose) 20 gm DAILY PRN PO CONSTIPATION; Start 04/14/17 at 00:00 Bisacodyl (Dulcolax Supp) 10 mg DAILY PRN [place] CONSTIPATION; Start 04/14/17 at 00:00 Empaglifozin (Jardiance) 10 mg DAILY PO Last administered on 04/19/17 08:53; Admin Dose 10 MG; Start 04/17/17 at 09:00 Meclizine HCl (Antivert) 25 mg TID PRN PO dizziness; Start 04/16/17 at 20:00 Linagliptin (Tradjenta) 5 mg DAILY PO Last administered on 04/19/17 08:51; Admin Dose 5 MG; Start 04/17/17 at 09:00 Acetaminophen/ Hydrocodone Bitart ([place] (5/325)) 1 tab Q8H PRN PO PAIN LEVEL 6 -10 Last administered on 04/19/17 11:40; Admin Dose 1 TAB; Start 04/19/17 at 11:00 RADHA ADAMS MD Apr 19, 2017 12:29
[2017-04-19 14:00] VITALS: BP 136/80; RESP 18
--- NOTE | 2017-04-19 18:42 | PN ---
Date/Time of Note Date/Time of Note DATE: 04/19/17 TIME: 18:40 Assessment/Plan VTE Prophylaxis VTE Prophylaxis Intervention: SCD's Lines/Catheters IV [facility]from [facility] Urinary Cath still in place: No Assessment/Plan Chief Complaint/Hosp Course No acute events, blood sugar is well controlled. Assessment/Plan 1. Recurrent stroke versus TIA. Continue patient on aspirin and Plavix. 2. Intermittent positional vertigo, continue meclizine as needed for dizziness 3. Hypertension. Continue metoprolol. 4. Diabetes mellitus with hemoglobin A1c 7.0. Continue Janumet and Jardiance. Continue Lantus and add premeal NovoLog. 5. Hyperlipidemia. Continue statin. 6. Anxiety and depression. Continue alprazolam p.r.n. Continue physical and occupational therapy. 7. Escherichia coli urinary tract infection. Continue Levaquin. Further recommendations based on clinical course. Plan of care discussed with Dr. Smith. Problems: Exam/Review of Systems Vital Signs Vitals Vital Signs Date Time Temp Pulse Resp B/P Pulse Ox O2 Delivery O2 Flow Rate FiO2 04/19/17 14:00 97.8 94 18 136/80 95 04/18/17 08:00 Room Air Intake and Output 04/18/17 04/18/17 04/19/17 15:00 23:00 07:00 Intake Total 1920 ml 600 ml Output Total 800 ml 400 ml Balance 1120 ml 200 ml Exam Constitutional: alert, oriented Head: normocephalic Neck: supple Respiratory: normal air movement Cardiovascular: nl pulses Gastrointestinal: non-tender, soft Musculoskeletal: other (Right-sided weakness) Results Results 24 hrs Laboratory Tests Test 04/18/17 20:17 04/19/17 07:57 04/19/17 08:47 04/19/17 12:00 Bedside Glucose 132 125 184 94 Test 04/19/17 17:57 Bedside Glucose 148 Medications Medications Current Medications Miscellaneous Information 1 ea NOTE XX ; Start 04/13/17 at 22:30 Glucose (Glutose) 15 gm Q15M PRN PO DECREASED GLUCOSE; Start 04/13/17 at 22:30 Glucose (Glutose) 22.5 gm Q15M PRN PO DECREASED GLUCOSE; Start 04/13/17 at 22: 30 Dextrose (D50w Syringe) 25 ml Q15M PRN IV DECREASED GLUCOSE; Start 04/13/17 at 22:30 Dextrose (D50w Syringe) 50 ml Q15M PRN IV DECREASED GLUCOSE; Start 04/13/17 at 22:30 Glucagon (Glucagen) 1 mg Q15M PRN IM DECREASED GLUCOSE; Start 04/13/17 at 22: 30 Glucose (Glutose) 15 gm Q15M PRN BUCCAL DECREASED GLUCOSE; Start 04/13/17 at 22:30 Zolpidem Tartrate (Ambien) 5 mg HS PRN PO INSOMNIA Last administered on 20:57; Admin Dose 5 MG; Start 04/13/17 at 22:30 Aspirin (Halfprin) 81 mg DAILY PO Last administered on 04/19/17 08:54; Admin Dose 81 MG; Start 04/14/17 at 09:00 Insulin Glargine (Lantus) 14 unit DAILY@20 SC Last administered on 04/18/17 20:20; Admin Dose 14 UNIT; Start 04/14/17 at 20:00 Diagnostic Test (Pha) (Accu-Chek) 1 ea 02 XX Last administered on 04/17/17 02 :12; Admin Dose 1 EA; Start 04/14/17 at 02:00 Acetaminophen (Tylenol Tab) 650 mg Q4H PRN PO PAIN AND OR ELEVATED TEMP Last administered on 04/19/17 07:06; Admin Dose 650 MG; Start 04/13/17 at 22:30 Alprazolam (Xanax) 0.25 mg BID PRN PO ANXIETY Last administered on 04/18/17 20:23; Admin Dose 0.25 MG; Start 04/13/17 at 22:30 Amlodipine Besylate (Norvasc) 5 mg DAILY PO Last administered on 04/19/17 08: 53; Admin Dose 5 MG; Start 04/14/17 at 09:00 Atorvastatin Calcium (Lipitor) 40 mg DAILY@21 PO Last administered on 20:15; Admin Dose 40 MG; Start 04/14/17 at 21:00 Clopidogrel Bisulfate (plaVIX) 75 mg DAILY PO Last administered on 04/19/17 08:53; Admin Dose 75 MG; Start 04/14/17 at 09:00 Docusate Sodium (Colace) 100 mg BID PO Last administered on 04/19/17 08:53; Admin Dose 100 MG; Start 04/14/17 at 09:00 Senna (Senokot) 1 tab HS PO Last administered on 04/18/17 20:15; Admin Dose 1 TAB; Start 04/14/17 at 21:00 Magnesium Hydroxide (Milk Of Mag) 30 ml BID PRN PO CONSTIPATION; Start at 00:00 Lactulose (Enulose) 20 gm DAILY PRN PO CONSTIPATION; Start 04/14/17 at 00:00 Bisacodyl (Dulcolax Supp) 10 mg DAILY PRN [place] CONSTIPATION; Start 04/14/17 at 00:00 Empaglifozin (Jardiance) 10 mg DAILY PO Last administered on 04/19/17 08:53; Admin Dose 10 MG; Start 04/17/17 at 09:00 Meclizine HCl (Antivert) 25 mg TID PRN PO dizziness; Start 04/16/17 at 20:00 Linagliptin (Tradjenta) 5 mg DAILY PO Last administered on 04/19/17 08:51; Admin Dose 5 MG; Start 04/17/17 at 09:00 Acetaminophen/ Hydrocodone Bitart (Herod (5/325)) 1 tab Q8H PRN PO PAIN LEVEL 6 -10 Last administered on 04/19/17 11:40; Admin Dose 1 TAB; Start 04/19/17 at 11:00 KAYLA JACKSON Apr 19, 2017 18:42
--- NOTE | 2017-04-20 09:35 | DS ---
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 2. Hypertension. 3. Diabetes mellitus. 4. Hyperlipidemia. 5. History of thrombectomy. 6. Depression. 7. Urinary tract infection. 8. Improvements in self-care, mobility and cognition. Patient Condition: Good Hospital Course Patient was admitted for comprehensive interdisciplinary acute rehabilitation. Patient made steady functional gains and improved from a mod level to a Modified Independent level for self care and mobility, including ambulating over 150 feet with the use of a front wheeled walker. Family trained in assistance. Patient is being discharged home with recommendations for home health PT and OT follow up. DME recommendations: FWW; BSC; Shower Chair Patient will follow up with PMD upon DC. Home Meds Active Scripts Ondansetron (Ondansetron Odt) 4 Mg Tab.rapdis, 4 MG PO Q6H Y for NAUSEA AND/OR VOMITING, #30 TAB Prov:DEEPAK JACOME MD 11/12/16 Ibuprofen* (Motrin*) 800 Mg Tab, 800 MG PO Q6H Y for PAIN AND OR ELEVATED TEMP, #30 TAB Prov:DEEPAK JACOME MD 11/12/16 Dicyclomine Hcl* (Bentyl*) 10 Mg Capsule, 10 MG PO QID Y for abdominal cramping , #30 CAP Prov:DEEPAK JACOME MD 11/12/16 Reported Medications Sertraline Hcl* (Sertraline Hcl*) 50 Mg Tablet, 50 MG PO DAILY, #30 TAB 06/06/16 Sitagliptin Phos/Metformin HCl (Janumet 50-1,000 mg Tablet) 1 Each Tablet, 1 EACH PO BID, TAB 06/06/16 Aspirin* (Aspirin* EC) 81 Mg Tablet.dr, 81 MG PO DAILY, TAB 06/06/16 Clopidogrel Bisulfate (Clopidogrel) 75 Mg Tablet, 75 MG PO DAILY, #30 TAB 06/06/16 Alprazolam* (Alprazolam*) 0.25 Mg Tablet, 0.25 MG PO BID Y for ANXIETY, TAB 06/06/16 Metoprolol Succinate* (Toprol XL*) 50 Mg Tab.er.24h, 50 MG PO DAILY, #30 TAB 06/06/16 Amlodipine Besylate* (Norvasc*) 5 Mg Tablet, 5 MG PO DAILY, TAB 06/06/16 Empagliflozin (Jardiance) 10 Mg Tablet, 10 MG PO DAILY, TAB 06/06/16 Topiramate* (Topiramate*) 100 Mg Tablet, 100 MG PO BID, TAB 06/06/16 Primary Care Provider Tyrel Wasserman Pending Labs Laboratory Tests Test 04/19/17 12:00 04/19/17 17:57 Bedside Glucose 94mg/dL (70-220) 148mg/dL (70-220) RADHA ADAMS MD Apr 20, 2017 09:35
== END 2017-04-19 19:30 | disposition home health service (06) | DRG 57 ==
LOC: VRC 09:15
PROVIDERS: ADMIT Physical Medicine & Rehabilitation; ATTEND Internal Medicine
PROC: F07Z9FZ Gait Training/Functional Ambulation Treatment using Assistive, Adaptive, Supportive or Protective Equipment (ICD-10-PCS; principal; 2017-04-13)
PROC: F07Z5FZ Bed Mobility Treatment using Assistive, Adaptive, Supportive or Protective Equipment (ICD-10-PCS; 2017-04-13)
PROC: F07Z8FZ Transfer Training Treatment using Assistive, Adaptive, Supportive or Protective Equipment (ICD-10-PCS; 2017-04-13)
PROC: F08Z2FZ Grooming/Personal Hygiene Treatment using Assistive, Adaptive, Supportive or Protective Equipment (ICD-10-PCS; 2017-04-13)
PROC: F08Z0FZ Bathing/Showering Techniques Treatment using Assistive, Adaptive, Supportive or Protective Equipment (ICD-10-PCS; 2017-04-13)
PROC: F08Z1FZ Dressing Techniques Treatment using Assistive, Adaptive, Supportive or Protective Equipment (ICD-10-PCS; 2017-04-13)
DX: I69.351 Hemiplegia and hemiparesis following cerebral infarction affecting right dominant side (principal); I10 Essential (primary) hypertension; N39.0 Urinary tract infection, site not specified; E11.9 Type 2 diabetes mellitus without complications; B96.20 Unspecified Escherichia coli [E. coli] as the cause of diseases classified elsewhere; E78.5 Hyperlipidemia, unspecified; F41.9 Anxiety disorder, unspecified; F32.9 Major depressive disorder, single episode, unspecified; H92.01 Otalgia, right ear; Z79.4 Long term (current) use of insulin; Z79.02 Long term (current) use of antithrombotics/antiplatelets; Z79.82 Long term (current) use of aspirin
CPT/HCPCS: 80053; 81003; 82962; 85025; 87081; 87086; 90686; 92507; 92523; 92526; 92610; 97110; 97112; 97116; 97150; 97163; 97167; 97530; 97535; J1815

== ENCOUNTER 2017-10-22 18:17 | Emergency (ER) | END 2017-10-22 21:39 | disposition short-term general hospital (02) ==